=== PATIENT | male | born 1960 | race Caucasian/White ===

== ENCOUNTER → 2019-08-12 10:41 | Outpatient (CLI) | payer OTHER, SELFPAY ==
--- NOTE | 2019-08-12 10:43 | DI.CT.S_ITS ---
PROCEDURE: CT PEL WO CON INDICATIONS: right groin pain/testicle pain r/o hernia TECHNIQUE: Noncontrast 3 mm axial sections acquired through the bony pelvis, with coronal and sagittal reformatting. COMPARISON: None. FINDINGS: Image quality: Excellent. Bones: There is no acute fracture or dislocation. Mild osteoarthritic changes in bilateral hip joints, sacroiliac joints, and symphysis pubis are seen. No suspicious intraosseous lesion. No evidence of avascular necrosis of femoral head. Mild degenerative disc disease in visualized lower lumbar spine is also seen. Soft tissues: Appendix is enlarged in right lower quadrant abdomen with suggestion of a 5 mm appendicolith. Slightly enlarged appendix is seen with a diameter measures up to 9 mm. There is suggestion of appendiceal wall thickening and minimal periappendiceal fat stranding concerning for appendicitis. No abscess collection. No free fluid or free air. The urinary bladder is partially distended and show mild diffuse bladder wall thickening up to 5 mm in thickness. No discrete bladder wall mass is seen. Mildly enlarged prostate gland with mild mass effect of pleural urinary bladder is seen. There is left greater than right bilateral inguinal hernia containing fat only. No gross inguinal lymphadenopathy. IMPRESSION: 1. Finding is concerning for appendicitis with an appendicolith. No evidence of abscess collection or perforation. No bowel obstruction. No free fluid or free air. 2. Left greater than right bilateral inguinal hernia containing fat only. No inflammatory changes are noted bilaterally region. 3. Mild osteoarthritic changes throughout the pelvis. No suspicious bony lesion. No fracture or dislocation. No evidence of avascular necrosis of femoral head. Dictated by: Adi Beach M.D. on 08/12/2019 at 11:23 Approved by: Adi Beach M.D. on 08/12/2019 at 11:33
== END ==
PROVIDERS: Family Provider Internal Medicine; PCP Internal Medicine; Visit Provider Specialist
DX: R10.31 Right lower quadrant pain (principal); N50.811 Right testicular pain; K40.20 Bilateral inguinal hernia, without obstruction or gangrene, not specified as recurrent
CPT/HCPCS: 72192

== ENCOUNTER → 2019-08-13 12:19 | Outpatient (CLI) | payer OTHER, SELFPAY ==
[2019-08-13 12:41] LABS: Add Manual Diff / Slide Review NO; Basophils Absolute Auto 100 /uL (0-100); Basophils Percent Auto 1.2 % (0-2); Eosinophils Absolute Auto 100 /uL (0-450); Eosinophils Percent Auto 2.5 % (2-4); Hematocrit 48.8 % (41-53); Hemoglobin 16.7 g/dL (13.5-17.5); Lymphocytes Absolute Auto 2000 /uL (1100-4500); Lymphocytes Percent Auto 35.3 % (25-40); Mean Corpuscular HGB Conc 34.2 % (30-36); Mean Corpuscular Volume 87.9 fL (80-100); Monocytes Absolute Auto 500 /uL (0-900); Monocytes Percent Auto 9.2 % (3-14); Neutrophils Absolute Auto 3000 /uL (1500-7000); Neutrophils Percent Auto 51.8 % (50-75); Platelet Count 261 X10^3/uL (150-400); Red Blood Cell Count 5.55 X10^6/uL (4.5-5.9); Red Cell Distribution Width 14.3 % (11.6-14.8); White Blood Cell Count 5.8 X10^3/uL (4.5-11.0)
[2019-08-13 12:58] LABS: Alanine Aminotransferase 53 IU/L (<50); Albumin 4.9 g/dL (3.5-5.0); Albumin Globulin Ratio 1.6 (1.0-2.8); Alkaline Phosphatase 64 U/L (38-126); Aspartate Aminotransferase 45 IU/L (17-59); BUN Creatinine Ratio 15.7 (6-22); Bilirubin Total 0.8 mg/dL (0.2-1.3); Blood Urea Nitrogen 22 mg/dL (9-20); Calcium 10.7 mg/dL (8.4-10.2); Carbon Dioxide 30 mmol/L (22-32); Chloride 104 mmol/L (98-107); Estimated Glomerular Filt Rate 51.9 mL/min (>60); Globulin 3.1 g/dL (1.7-4.1); Glucose 99 mg/dL (70-100); HEMOLYSIS < 15 (0-50); Potassium 5.5 mmol/L (3.4-5.1); Sodium 143 mmol/L (137-145)
== END ==
PROVIDERS: Family Provider Internal Medicine; PCP Internal Medicine; Visit Provider Specialist
DX: R10.31 Right lower quadrant pain (principal)
CPT/HCPCS: 36415; 80053; 85025; J2543

== ENCOUNTER 2019-08-13 14:10 | Day surgery (SDC) | payer OTHER, SELFPAY ==
[2019-08-13] VITALS (8 sets, daily range): BP systolic 122–162; BP diastolic 69–92; PULSE 60–72; RESP 10–16; TEMP 36.2–36.9; O2SAT 94–98; BMI 32.7
--- NOTE | 2019-08-13 | PATH_ITS ---
[facility] Accession Number: [id number] . 01 Material submitted: . appendix - APPENDIX . 02 Diagnosis: Appendix, Appendectomy: Mild acute appendicitis with luminal fecalith. Prominent lymphoid component; please see comment. Negative for epithelial dysplasia or malignancy. [facility] 08/18/2019 1312 Local . 02 Comment: The entire appendix is submitted, and shows a prominent lymphoid component which may due to tangential sectioning or a brisk immune response; however, this case will be sent for review by our hematopathologist in consultation and the results reported as an addendum. . 02 Electronically signed: . Morena Mckeon MD, Pathologist NPI- [id number] . 01 Gross description: . Received in formalin, labeled appendix, is an intact appendix (length-4.5 cm, diameter-1.0 cm) with gasca-pink smooth and shiny serosa and attached mesoappendix (up to 1.5 cm in depth). The resection margin is received opened. The lumen contains red-brown solid firm material. The wall is up to 0.3 cm thick. No nodules, masses or lesions are identified. The resection margin is inked blue. The appendix is serially sectioned and entirely submitted proximal to distal in cassettes A1-A3 with the resection margin en face in A1 and the tip bivalved in A3. ([id number]) /[facility] 08/14/2019 1647 Local . 02 Pathologist provided ICD-10: K35.80 . 02 CPT . 064374 Performed at: 01 [facility] [address] [place] [address] [address] [facility], [place], [place] [id number] MD Joe Hall MD Phone: [phone] Performed at: 02 [facility] [address] [place] [id number] MD Morena Mckeon MD Phone: [phone]
--- NOTE | 2019-08-13 14:18 | PM.HP.1 ---
History of Present Illness History of Present Illness Date Patient Seen: 08/13/19 Time Patient Seen: 14:00 Chief complaint: *[id number] Narrative: The patient is a gentleman who had a CT scan for other reasons and was found to have findings suggestive of acute appendicitis. Developed right lower quadrant pain and is seen. He is tender in the right lower quadrant is being brought in for an appendectomy and indicated procedures Patient History Medical History Heartburn (Acute) HTN (hypertension) (Acute) Hyperlipemia (Acute) Surgical History History of surgery on wrist (Acute) Hx of elbow surgery (Acute) Hx of tonsillectomy (Acute) Family & Social History Family History Brother Heart disease Diabetes mellitus Mother Stroke Father Heart disease Grandfather Heart disease Social History: household members spouse Tobacco & Substance use: Smoking Status Never smoker alcohol intake never Meds Home Medications and Allergies Home Medications Medication Instructions Recorded Confirmed Type aspirin 81 mg tablet,delayed 81 mg PO DAILY 04/07/18 08/13/19 History release fenofibrate 50 mg capsule 50 mg PO DAILY 04/07/18 08/13/19 History metoprolol tartrate 50 mg tablet 50 mg PO DAILY 04/07/18 08/13/19 History rosuvastatin 20 mg tablet 20 mg PO DAILY 04/07/18 08/13/19 History cyclobenzaprine 10 mg tablet 10 mg PO BEDTIME PRN 08/05/19 08/13/19 History tmdjfsyf-pmu-nvxmx acid 0.4 1 tab PO DAILY 08/05/19 08/13/19 History mg-lycopene 300 mcg-lutein 250 mcg tablet nitroglycerin 0.4 mg sublingual 0.4 mg SL Q5M PRN 08/05/19 08/13/19 History tablet Allergies Allergy/AdvReac Type Severity Reaction Status Date / Time No Known Drug Allergies Allergy Verified 08/13/19 14:11 Review of Systems Review of Systems ROS Unobtainable: All systems reviewed & are unremarkable except as noted in HPI and below Musculoskeletal Comments: Hernia bilateral inguinal. Both reducible. Exam Narrative Exam Narrative: Lungs are clear to auscultation no rales or rhonchi heart regular rate and rhythm no murmur gallop abdomen is protuberant and distended soft there is localized tenderness the right lower abdomen. Some voluntary guarding. Remainder the abdomen is soft and nontender. Assessment & Plan Assessment & Plan narrative: Patient has a normal white blood cell count and normal temp but findings on CT and physical exam suggestive of appendicitis. Will proceed with an appendectomy. Will attempt to do this laparoscopically. I've discussed the operation including risks of bleeding infection injury to internal organs and hernia will proceed
[2019-08-13] MEDS: LACTATED RINGERS 1,000 ML 100 ML IV (14:26)
--- NOTE | 2019-08-13 14:30 | PM.PREOP ---
Pre-operative Note Interval Note History & Physical reviewed/Exam performed by Physician: Yes Changes to H&P: No
[2019-08-13] MEDS: PIPERACILLIN-TAZO 3.375 GM/50 ML FROZ.PIGGY IV (14:31)
--- NOTE | 2019-08-13 15:08 | SUR.OPER ---
Supine on padded OR bed, head on pillow, arm padded and tucked at side, legs uncrossed, safety belt at thigh, tape over blanket over lower legs .
[2019-08-13] MEDS: BUPIVACAINE 0.5% (PF) VIAL 30 ML INJ (15:27)
--- NOTE | 2019-08-13 16:04 | PM.OP.1 ---
Operative Date/Time/Diagnoses Date of procedure: 08/13/19 Time of procedure: 16:05 Pre-op diagnosis: right lower quadrant pain rule out acute appendicitis Post-op diagnosis: same (Acute appendicitis) Procedure & Clinicians Procedure: Laparoscopic appendectomy Same procedure as scheduled: Yes Indications: Acute onset right lower quadrant pain abnormal CT and tenderness in the right lower quadrant Surgeon: Chino Diaz Click Yes if Unassisted: Yes Anesthesia Type: General Operative Notes Findings: Acute appendicitis with the tip becoming adhesed to the right abdominal wall Closure Type: primary Specimen(s): other (Appendix) Prosthetic devices, grafts, tissues, transplants, or devices: None Estimated Blood Loss (mL): 5 Blood products transfused: none Procedure in detail: Patient was placed supine on the operating room table and underwent general endotracheal anesthesia. He was prepped and draped in the usual fashion. Local anesthetic was infiltrated beneath the umbilicus and a curvilinear incision made there. Was carried down level the fascia. The fascia was entered under direct vision as was the peritoneal cavity. Stay sutures of 0 Vicryl werPlaced in the fascia. A 12 mm port was inserted and the abdomen was insufflated. Two additional ports were placed 1 between the umbilicus and pubis and 1 left lower quadrant. The appendix was identified as a fairly normal structure except the tip which was quite thick and inflamed appearing in beginning to form adhesions to the right lateral abdominal wall. Using blunt dissection I was able to dissected free of the abdominal wall. The mesoappendix was divided using cautery. A loop was placed at the base and it seemed to encompass where the artery would be as well. This was an 0 PDS loop. It was cinched down. The appendix was grasped with a clamp across its lumen and divided using cautery and Metzenbaum laparoscopic scissors. Was immediately placed in a bag without spillage. Was removed that difficulty through the umbilical port. the right lower quadrant pelvis were irrigated and suctioned free of fluid. There was no significant bleeding during the procedure. A completion everything looked as it should. The ports were all removed. The stay sutures at the umbilicus were tied and additional 2 0 PDS was placed between the 2 stay sutures. The wounds were irrigated and 4 0 Vicryl subcuticular stitches were used to close the skin along with Steri-Strips. Band-aids were applied and the patient was awakened and extubated taken recovery area in good condition. The Flores which had been placed immediately prior to the operation was removed prior to the patient waking up. Complications: none Post-operative Condition: stable Disposition: PACU Plan for aftercare: Follow-up in the office
== END 2019-08-13 17:25 | disposition home or self-care (01) ==
LOC: OR 14:13 → AC 14:14
PROVIDERS: Family Provider Internal Medicine; PCP Internal Medicine; Visit Provider Specialist
PROC: 0DTJ4ZZ Resection of Appendix, Percutaneous Endoscopic Approach (ICD-10-PCS; CPT 44970; principal; 2019-08-13 13:45)
DX: K35.890 Other acute appendicitis without perforation or gangrene (principal); I10 Essential (primary) hypertension; E78.5 Hyperlipidemia, unspecified; R12 Heartburn; R10.31 Right lower quadrant pain
CPT/HCPCS: 44970; 36415; 80053; 85025; J2543

== ENCOUNTER → 2019-09-11 11:39 | Outpatient (CLI) | payer OTHER, SELFPAY ==
[2019-09-11 12:45] LABS: Alanine Aminotransferase 53 IU/L (<50); Albumin 4.7 g/dL (3.5-5.0); Albumin Globulin Ratio 1.7 (1.0-2.8); Alkaline Phosphatase 56 U/L (38-126); Aspartate Aminotransferase 44 IU/L (17-59); BUN Creatinine Ratio 16.7 (6-22); Bilirubin Total 0.7 mg/dL (0.2-1.3); Blood Urea Nitrogen 20 mg/dL (9-20); Calcium 9.8 mg/dL (8.4-10.2); Carbon Dioxide 26 mmol/L (22-32); Chloride 106 mmol/L (98-107); Cholesterol 168 mg/dL (140-199); Estimated Glomerular Filt Rate > 60.0 mL/min (>60); Globulin 2.8 g/dL (1.7-4.1); Glucose 80 mg/dL (70-100); HDL Cholesterol 44 mg/dL (40-60); HEMOLYSIS 26 (0-50); LDL Cholesterol Calculated 86 mg/dL (<100); Potassium 4.9 mmol/L (3.4-5.1); Sodium 140 mmol/L (137-145); Total Protein 7.5 g/dL (6.3-8.2); Triglycerides 192 mg/dL (35-150)
[2019-09-11 13:15] LABS: Prostate Specific Antigen Scrn 1.04 ng/mL (0.1-4.0)
[2019-09-15 14:29] LABS: Parathyroid Hormone Int 17 pg/mL (14-64)
== END ==
PROVIDERS: Family Provider Internal Medicine; PCP Internal Medicine; Visit Provider Internal Medicine
DX: Z12.5 Encounter for screening for malignant neoplasm of prostate (principal); E78.5 Hyperlipidemia, unspecified; E83.52 Hypercalcemia; I10 Essential (primary) hypertension; R74.0 Nonspecific elevation of levels of transaminase and lactic acid dehydrogenase [LDH]
CPT/HCPCS: 36415; 80053; 80061; 83970; G0103

== ENCOUNTER → 2020-05-17 10:15 | Outpatient (CLI) | payer OTHER, SELFPAY ==
[2020-05-17 11:25] LABS: Alanine Aminotransferase 64 IU/L (<50); Albumin 4.5 g/dL (3.5-5.0); Albumin Globulin Ratio 1.7 (1.0-2.8); Alkaline Phosphatase 86 U/L (38-126); Aspartate Aminotransferase 41 IU/L (17-59); BUN Creatinine Ratio 16.7 (6-22); Bilirubin Total 0.9 mg/dL (0.2-1.3); Blood Urea Nitrogen 17 mg/dL (9-20); Calcium 9.6 mg/dL (8.4-10.2); Carbon Dioxide 26 mmol/L (22-32); Chloride 104 mmol/L (98-107); Cholesterol 174 mg/dL (140-199); Estimated Glomerular Filt Rate > 60.0 mL/min (>60); Globulin 2.7 g/dL (1.7-4.1); Glucose 96 mg/dL (80-110); HDL Cholesterol 39 mg/dL (40-60); HEMOLYSIS < 15 (0-50); LDL Cholesterol Calculated 64 mg/dL (<100); Potassium 4.8 mmol/L (3.4-5.1); Sodium 140 mmol/L (137-145); Total Protein 7.2 g/dL (6.3-8.2); Triglycerides 356 mg/dL (35-150)
== END ==
PROVIDERS: Family Provider Internal Medicine; PCP Internal Medicine; Referring Provider Internal Medicine; Visit Provider Internal Medicine
DX: I10 Essential (primary) hypertension (principal); E78.5 Hyperlipidemia, unspecified
CPT/HCPCS: 36415; 80053; 80061

== ENCOUNTER → 2020-05-23 09:09 | Outpatient (CLI) | payer OTHER, SELFPAY ==
[2020-05-24 07:36] LABS: COVID19 Sendout Not Detected (Not Detect)
== END ==
PROVIDERS: Family Provider Internal Medicine; PCP Internal Medicine; Visit Provider Physician Assistant
DX: Z11.59 Encounter for screening for other viral diseases (principal)
CPT/HCPCS: 87635

== ENCOUNTER 2020-05-26 06:40 | Day surgery (SDC) | payer OTHER, SELFPAY ==
[2020-05-26] VITALS (8 sets, daily range): BP systolic 125–169; BP diastolic 76–93; PULSE 46–60; RESP 9–16; TEMP 36.2–36.8; O2SAT 92–96; BMI 32.8
--- NOTE | 2020-05-26 | PATH_ITS ---
[facility] Accession Number: [id number] . 01 Material submitted: . PART A: colon - ASCENDING COLON POLYP PART B: colon - 40CM COLON POLYP . 01 Clinical history: . SDC . 02 Diagnosis: A. Ascending Colon, Polyp, Biopsy: Tubular adenoma. . B. Colon, Polyp 40 cm, Biopsy: Tubular adenoma. Additional levels were examined. [facility] 06/03/2020 1517 Local . 02 Electronically signed: . Morena Mckeon MD, Pathologist NPI- [id number] . 01 Gross description: . A. Received in formalin, labeled ascending colon polyp, and consists of a 0.2 x 0.2 x 0.2 cm gasca fragment of soft tissue, which is entirely submitted in cassette A1. B. Received in formalin, labeled 40 cm colon polyp, and consists of a 0.4 x 0.4 x 0.3 cm gasca-pink fragment of soft tissue, which is entirely submitted in cassette B1. ([id number]) /[facility] 05/27/2020 1217 Local . 02 Pathologist provided ICD-10: D12.2, D12.6 . 02 CPT . 167694, 370219 Performed at: 01 [facility] [address], [place], [place] [id number] MD Joe Hall MD Phone: [phone] Performed at: 02 [facility] [address] [place], [place] [id number] MD Morena Mckeon MD Phone: [phone]
--- NOTE | 2020-05-26 07:45 | PM.HP.1 ---
History of Present Illness History of Present Illness Date Patient Seen: 05/26/20 Time Patient Seen: 07:45 Chief complaint: SDC Narrative: The patient is a gentleman who was last sigmoidoscopy was over 15 years ago. He said he had a few polyps removed at that time. Never had a colonoscopy. He has been having intermittent rectal bleeding sometimes of a large amount. It is always with a bowel movement. Patient History Medical History Heartburn (Acute) HTN (hypertension) (Acute) Hyperlipemia (Chronic) Treadmill stress test negative for angina pectoris (Acute 06/28/16) Surgical History History of surgery on wrist (Acute) Hx of elbow surgery (Acute) Hx of tonsillectomy (Acute) S/P laparoscopic appendectomy (Acute ~08/13/19) Family & Social History Family History Brother Heart disease Diabetes mellitus Mother Stroke Father Heart disease Grandfather Heart disease Social History: household members spouse Tobacco & Substance use: Smoking Status Never smoker alcohol intake never Substance Use Type does not use Meds Home Medications and Allergies Home Medications Medication Instructions Recorded Confirmed Type aspirin 81 mg tablet,delayed 81 mg PO DAILY 04/07/18 05/26/20 History release cyclobenzaprine 10 mg tablet 10 mg PO BEDTIME PRN 08/05/19 05/26/20 History igppqfws-hbd-bjhof acid 0.4 1 tab PO DAILY 08/05/19 05/26/20 History mg-lycopene 300 mcg-lutein 250 mcg tablet nitroglycerin 0.4 mg sublingual 0.4 mg SL Q5M PRN 08/05/19 05/26/20 History tablet sildenafil (pulm.hypertension) 20 100 mg PO DAILY PRN tab 09/11/19 05/26/20 History mg tablet metoprolol succinate 50 mg 50 mg PO DAILY #90 tab 09/22/19 05/26/20 Rx tablet,extended release 24 hr rosuvastatin 40 mg tablet 40 mg PO DAILY #90 tab 09/22/19 05/26/20 Rx Allergies Allergy/AdvReac Type Severity Reaction Status Date / Time atorvastatin AdvReac Intermediate aches/pains Verified 05/19/20 15:03 Review of Systems Review of Systems ROS: Yes All systems reviewed with the patient and are negative except as otherwise documented Exam Vital Signs (past 8 hours): - 05/26/20 07:16 Temperature 97.3 F L Pulse Rate 58 L Respiratory Rate 16 Blood Pressure 169/93 H Pulse Oximetry 96 Oxygen Delivery Method Room Air Narrative Exam Narrative: Pleasant cooperative patient no apparent distress. Lungs are clear to auscultation. No rales or rhonchi. Heart regular rate and rhythm no murmur gallop. Abdomen is soft nontender without mass. No obvious hernias. Patient is alert and oriented x3. Assessment & Plan Assessment & Plan narrative: The patient for a screening colonoscopy. I have discussed the procedure with them. Risks of bleeding, perforation which would necessitate major operation, failure to find remove all lesions, the potential tattoo were all discussed. All questions were answered. They wished to proceed. Also discussed hemorrhoid banding with him.
--- NOTE | 2020-05-26 07:47 | PM.PREOP ---
Pre-operative Note COVID-19 COVID-19 status: Negative Result date/Date tested (Pos, Neg/Pending): 05/23/20 Interval Note History & Physical reviewed/Exam performed by Physician: Yes Changes to H&P: No ASA Class (for procedural sedation): II
[2020-05-26] MEDS: MIDAZOLAM 5 MG/5 ML VIAL IV (07:55)
[2020-05-26] MEDS: fentaNYL 250 MCG/5 ML INJ IV (07:58)
--- NOTE | 2020-05-26 08:28 | PM.OP.ENDO ---
Operative Date/Time/Diagnoses Date of procedure: 05/26/20 Time of procedure: 08:28 Pre-op diagnosis: Rectal bleeding. Last sigmoidoscopy 15 years ago. This is his 1st colonoscopy. Post-op diagnosis: same (Diverticulosis sigmoid colon. Anterior midline fissure chronic. Internal hemorrhoids.) Procedure & Clinicians Study performed: Colonoscopy with cold biopsy and anoscopy with hemorrhoidal banding of 3 columns. Same procedure as scheduled: Yes Indications: Screening Surgeon: Chnio Diaz Procedure Notes SCOAP/Timeout: Performed Procedure in detail: The patient was placed in the left lateral decubitus position and underwent IV sedation directed by the surgeon consisting of fentanyl and Versed. Digital exam was remarkable for narrowing of the anus. There was a small anterior midline sentinel pile. The scope was inserted and advanced through the rectum into the sigmoid, descending, transverse, and ascending colon. Diverticulosis was noted in the sigmoid colon. The cecum was reached identified by the ileocecal valve and the appendiceal opening. The ileocecal valve was successfully cannulated. The terminal ileum was normal in appearance. The scope was gradually brought out. Polyps were found at the ascending colon and at 40 cm from the anal verge. These were both tiny lesions.. The scope ultimately was retroflexed in the rectum. The appearance was remarkable for internal hemorrhoids.. The scope was removed slowly and the patient was noted to have ulcerations on hemorrhoids near the anal verge. And the patient tolerated the procedure well. The prep was good. An anoscope was inserted and circumferential exam performed. I could see a chronic fissure in the anterior midline. Just beyond it was a sentinel pile. There were 3 columns of hemorrhoids that I chose to band these were located in the left lateral right anterior and right posterior locations. Scope withdrawal time: Nine minutes(11 total) Sedation minutes: 32 Findings: diverticulosis (Sigmoid colon), internal hemorrhoids (Three columns banded) and polyp (Small) Specimen(s): other (Polyps) Complications: none Post-procedure Recommendations: Start medication(s) (nifedipine cream) Follow up: weeks (2-3) Disposition: PACU
--- NOTE | 2020-05-26 08:46 | SUR.PHASEI ---
O2 weaning off, Dr. iDaz spoke with pt about procedure results
--- NOTE | 2020-05-26 09:07 | SUR.PHASEII ---
Pt rdcvd from gurvinder Arciniega with full report. VSS, pt denies pain or nausea and sitting up in bed drinking orange juice with no c/o.
--- NOTE | 2020-05-26 09:28 | SUR.PHASEII ---
Pt up and ambulating gait steady, getting dressed now.
--- NOTE | 2020-05-26 11:25 | SUR.PHASEII ---
1120-Pt dcd in stable condition via wc with no c/o. pt had been sleeping in bed dressed waiting for Dr Pickett to be finished dwith her surgery
== END 2020-05-26 11:20 | disposition home or self-care (01) ==
PROVIDERS: PCP Internal Medicine; Referring Provider Specialist; Visit Provider Specialist
PROC: 0DJD8ZZ Inspection of Lower Intestinal Tract, Via Natural or Artificial Opening Endoscopic (ICD-10-PCS; CPT 45378; principal; 2020-05-26 07:45)
DX: K60.1 Chronic anal fissure (principal); I10 Essential (primary) hypertension; R12 Heartburn; E78.5 Hyperlipidemia, unspecified; K57.30 Diverticulosis of large intestine without perforation or abscess without bleeding; K64.8 Other hemorrhoids; D12.2 Benign neoplasm of ascending colon; D12.6 Benign neoplasm of colon, unspecified
CPT/HCPCS: 45380; 46221; 99152; 99153; J2250; J3010

== ENCOUNTER → 2020-08-22 09:20 | Outpatient (CLI) | payer OTHER, SELFPAY ==
[2020-08-22 11:35] LABS: COVID19 -Nasal RAPID Negative (Negative)
== END ==
PROVIDERS: PCP Internal Medicine; Visit Provider Specialist
DX: Z01.812 Encounter for preprocedural laboratory examination (principal); Z20.828 Contact with and (suspected) exposure to other viral communicable diseases
CPT/HCPCS: 87635; C9803

== ENCOUNTER 2020-08-23 06:39 | Day surgery (SDC) | payer OTHER, SELFPAY ==
[2020-08-17 14:45] VITALS: BMI 33.2
[2020-08-23] VITALS (8 sets, daily range): BP systolic 112–148; BP diastolic 66–81; PULSE 56–62; RESP 8–15; TEMP 35.6–36.6; O2SAT 93–97; BMI 33.2
[2020-08-23] MEDS: LACTATED RINGERS 1,000 ML 42 ML IV (07:42)
--- NOTE | 2020-08-23 07:54 | PM.PREOP ---
Pre-operative Note COVID-19 COVID-19 status: Negative Result date/Date tested (Pos, Neg/Pending): 08/22/20 Interval Note History & Physical reviewed/Exam performed by Physician: Yes Changes to H&P: No
[2020-08-23] MEDS: CEFAZOLIN 2 GM/100 ML FROZ.PIGGY IV (07:56)
--- NOTE | 2020-08-23 08:12 | SUR.OPER ---
Supine on padded OR bed, head on pillow, arms secured on padded arm boards at <90 degrees abduction, legs uncrossed, safety belt at thigh, tape over blanket over lower legs.
[2020-08-23] MEDS: BUPIVACAINE 0.5% (PF) VIAL 30 ML INJ (08:17)
--- NOTE | 2020-08-23 10:32 | SUR.PHASEI ---
O2 reduced to 1LNP, arouses easily to voice, no longer needing jaw support. Denies pain/nausea
--- NOTE | 2020-08-23 11:05 | PM.OP.1 ---
Operative Date/Time/Diagnoses Date of procedure: 08/23/20 Time of procedure: 10:05 Pre-op diagnosis: Bilateral inguinal hernias. Post-op diagnosis: same (Indirect hernia on the right. Direct hernia on the left.) Procedure & Clinicians Procedure: Bilateral inguinal hernia repair with plug and patch technique Same procedure as scheduled: Yes Indications: Symptomatic right inguinal hernia and large left inguinal hernia. Patient brought in for repair. Surgeon: Chino Diaz Click Yes if Unassisted: Yes Anesthesia Type: General Operative Notes Findings: Right sided indirect hernia. Left-sided direct hernia with a large amount of preperitoneal fat protruding through the floor. Closure Type: primary Specimen(s): none sent Prosthetic devices, grafts, tissues, transplants, or devices: Mesh. Small plug on the right and medium plug on the left. Estimated Blood Loss (mL): 20 Blood products transfused: none Procedure in detail: The patient was placed supine on the operating room table and underwent general LMA anesthesia. He was prepped and draped in the usual fashion. A transverse incision was made overlying the right internal ring and carried down to the level of the external oblique. The external oblique was opened parallel with its fibers through the external ring. The cord structures were elevated. The cremaster was opened proximally and search made for an indirect sac. Very small narrow sac was identified and from surrounding structures. It was suture ligated at the level the deep epigastric vessels and the distal portion removed. The stump was allowed to retract and a small plug was placed in the defect created by the hernia. It was tacked into place with interrupted 0 Ethibond suture.. The floor was examined and was found to be mildly weakened.. A patch was placed across the floor and tacked at the pubic tubercle, the posterior lamella of the anterior rectus sheath, the ilioinguinal ligament, and superior lateral to the cord. The opening was modified as necessary to prevent tight constriction of the cord. Sutures of 0 as above were used to secure the mesh. The external oblique was closed with a running 3 0 Vicryl. The subcu was closed with interrupted 3 0 Polysorb. The skin was closed with a running 4 0 Vicryl subcuticular stitch. Attention was then turned to the left side. A mirror though slightly larger incision was made on the left overlying the internal ring. It was carried down level the external oblique which was opened parallel with its fibers through the external ring. Cord structures were elevated. There was a large amount of fat protruding through the floor immediately adjacent to the cord structures. Cremaster was opened and this fat delivered into the wound. A careful search was made for a indirect hernia sac but none was found. This fat was slowly dissected through to make sure there was no hernia in it as well. However no sac was found. The fat was ligated at the level the deep epigastric vessels in the stumps allowed to retract. A medium plug was placed in the defect created by this fat and tacked into place with interrupted Ethibond sutures. Patch was placed across the floor intact in identical fashion to the opposite side. External oblique was closed a running 3 0 Vicryl. The subQ was closed with interrupted 3 0 Vicryl the skin was closed running 4-0 Vicryl subcuticular stitch and Steri-Strips. Steri-Strips were also applied to the opposite side along with dressings. Local anesthetic was infiltrated at the beginning of each procedure and at the end. Patient tolerated the procedures well. Complications: none Post-operative Condition: stable Disposition: PACU
== END 2020-08-23 12:15 | disposition home or self-care (01) ==
PROVIDERS: PCP Internal Medicine; Referring Provider Internal Medicine; Visit Provider Specialist
PROC: (CPT 49505; principal; 2020-08-23 07:45)
DX: K40.20 Bilateral inguinal hernia, without obstruction or gangrene, not specified as recurrent (principal); R12 Heartburn; I10 Essential (primary) hypertension; E78.5 Hyperlipidemia, unspecified
CPT/HCPCS: 49505; C1781; J0690; J1100; J2250; J2405; J2704; J3010

== ENCOUNTER → 2020-09-27 09:45 | Outpatient (CLI) | payer OTHER, SELFPAY ==
[2020-09-27] MEDS: COVID-19 VACC #1, MRNA(MOD) 100 MCG/0.5 ML VIAL IM (09:51)
== END ==
PROVIDERS: PCP Internal Medicine; Visit Provider Internal Medicine
DX: Z23 Encounter for immunization (principal)
CPT/HCPCS: 0011A; 91301

== ENCOUNTER → 2020-10-20 08:45 | Outpatient (CLI) | payer OTHER, SELFPAY ==
[2020-10-20] MEDS: COVID-19 VACC #2, MRNA(MOD) 100 MCG/0.5 ML VIAL IM (08:49)
== END ==
PROVIDERS: PCP Internal Medicine; Visit Provider Internal Medicine
DX: Z23 Encounter for immunization (principal)
CPT/HCPCS: 0012A; 91301

== ENCOUNTER → 2021-02-15 10:01 | Outpatient (CLI) | payer OTHER, SELFPAY ==
--- NOTE | 2021-02-16 14:22 | PM.TREADMILL ---
Cardiac Stress Test Report Referral & Results Date Patient Seen: 02/16/21 Requesting provider: Esdras Ojeda Indication: Chest pain Rest ECG: unremarkable although frequent PVCs Procedure Note: Today following both written and verbal informed consent the patient was exercised according to a standard Jordin protocol patient went for a total of 7 minutes 38 seconds achieving a maximum heart rate of 146 maximum systolic blood pressure of 196. This is approximately 10.1 METS. Exercise was terminated at this point because of targets were met. Patient was also given Cardiolite through a previously started Hep-Lock IV by the diagnostic imaging staff approximately 1 minute prior to the cessation of exercise. there are no ST-T segment changes Function aerobic impairment rates about 10% on the active scale There frequent PVCs and PACs including runs of ventricular bigeminy and 3 and 4 beat runs of nonsustained polymorphic ventricular tachycardia as well as 5-6 beat runs of supraventricular tachycardia Impression: no evidence of ischemia Frequent dysrhythmias as above Average exercise capacity Please see perfusion imaging report as well Please note: Actual ECG tracings can be found in the PACS system.
--- NOTE | 2021-02-16 19:47 | DI.NM.S_ITS ---
DATE OF SERVICE: 02/15/2021 PROCEDURE: Exercise perfusion. INDICATION: Chest pain with underlying hypertension and hyperlipidemia. RADIOPHARMACEUTICAL: 24.8 millicurie technetium-99m Myoview IV was injected at stress and 26.8 millicurie technetium-99m Myoview IV was injected at rest. CARDIAC STRESS: The patient underwent exercise perfusion study under the supervision of an attending staff. The patient walked on Jordin protocol for 7 minutes and 38 seconds, achieved 92 percent of target heart rate. Baseline blood pressure 140/78 mmHg. Peak blood pressure 196/106 mmHg, suggestive of hypertensive blood pressure response. The patient achieved 10.1 METs of workload. Functional aerobic impairment positive 10 percent. No chest discomfort. Baseline EKG revealed sinus rhythm with intermittent PVCs. During early part of exercise, PVCs worsened with frequent PVCs, as well as ventricular triplets and one four-beat run of nonsustained ventricular tachycardia, as well as a short burst of SVT and some PACs. At peak exercise, no worsening of supraventricular or ventricular arrhythmias. In recovery, PVCs returned. There was some nonspecific ST-T changes without any convincing ischemic changes. RAW DATA: There is increased subdiaphragmatic activity. Patient's weight is 250 pounds. GATED STUDY: Resting LV ejection fraction 65 percent and stress LV ejection fraction 67 percent. No obvious wall motion abnormalities. Resting end- diastolic volume 136 mL. TID ratio 0.98, which is within normal limits. Lung/heart ratio 0.33, which is within normal limits. MYOCARDIAL PERFUSION SCAN: The stress supine and resting supine images revealed moderate-size, severely decreased perfusion of basal inferior wall, as well as inferoapex, which got significantly improved during stress prone images, suggestive of diaphragmatic tissue attenuation artifact. No convincing ischemia or infarction pattern seen. CONCLUSION: I will call this study likely a normal myocardial perfusion study with evidence of diaphragmatic tissue attenuation artifact, which got significantly improved during stress prone images. The stress prone images did not reveal any convincing ischemia or infarction pattern. The patient walked on Jordin protocol for 7 minutes and 38 seconds. Hypertensive blood pressure response. No anginal symptoms. Frequent premature ventricular contractions and premature atrial contractions, as well as some nonsustained ventricular tachycardia. No sustained ventricular tachycardia or atrial fibrillation seen. Clinical correlation is recommended. Og Randle - SUPRIYA/myke/dannielle doc#: [id number]/job#: [id number] dd: 02/16/2021 17:20:00 dt: 02/16/2021 18:36:00 DICTATING MD/COPIES TO: Francis Hyde MD COPIES MNE: AKIL;
== END ==
PROVIDERS: PCP Internal Medicine; Referring Provider Internal Medicine; Visit Provider Internal Medicine
DX: Z20.822 Contact with and (suspected) exposure to COVID-19 (principal); Z01.812 Encounter for preprocedural laboratory examination; R07.9 Chest pain, unspecified; M54.2 Cervicalgia; I49.1 Atrial premature depolarization; I49.3 Ventricular premature depolarization; I10 Essential (primary) hypertension; E78.5 Hyperlipidemia, unspecified
CPT/HCPCS: 78452; 87635; 93016; 93017; 93018; A9502

== ENCOUNTER → 2021-02-15 11:22 | Outpatient (CLI) | payer OTHER, SELFPAY ==
[2021-02-15 12:52] LABS: COVID19 -Nasal RAPID Negative (Negative)
== END ==
PROVIDERS: PCP Internal Medicine; Visit Provider Physician Assistant
DX: Z01.812 Encounter for preprocedural laboratory examination (principal); Z20.822 Contact with and (suspected) exposure to COVID-19
CPT/HCPCS: 87635

== ENCOUNTER → 2021-03-16 14:30 | Outpatient (CLI) | payer OTHER, SELFPAY ==
--- NOTE | 2021-04-10 08:36 | PM.CARDMON.1 ---
Ssds Mk 2 Advanced Operator Report Referral & Results Date Patient Seen: 03/16/21 Requesting provider: Esdras Ojeda Indication: PVCs Duration of monitoring (days): 7 Diary information: There was 1 patient triggered event that was associated with sinus rhythm and PACs and PVCs Data: Minimum heart rate identified was 39 beats per minute at 07:27 on 03/18/2021 Maximum sinus heart rate was 114 beats per minute at 18:28 on 03/20/2021 Maximum overall heart rate was 179 beats per minute at 16:26 on 03/22/2021 during a 5 beat run of SVT Less than 1% of identified beats were supraventricular ectopic in origin which would classify them as rare Approximately 5.3% of identified beats were ventricular ectopic in origin which would classify them as frequent. This includes a 1 minute 41 sec run of ventricular bigeminy and a 35.8 sec run of ventricular trigeminy There was 1 run of ventricular tachycardia that was 10 beats in duration at a rate of 141 beats per minute There were 3 runs of SVT the fastest being the 5 beat run noted above the longest lasting 6 beats Impression: Patient with frequent PVCs and a single run of nonsustained brief run trigger tachycardia. Patient also with very rare very brief runs of SVT Clinical correlation suggested, evaluation for structural heart disease suggested.
== END ==
PROVIDERS: PCP Internal Medicine; Referring Provider Internal Medicine; Visit Provider Internal Medicine
DX: I49.3 Ventricular premature depolarization (principal)
CPT/HCPCS: 93242; 93244

== ENCOUNTER → 2021-12-07 12:25 | Outpatient (CLI) | payer OTHER, SELFPAY ==
--- NOTE | 2021-12-07 12:26 | DI.ECHO.S_ITS ---
[place] [facility] +---------+ : : [address] : : : : [id number] : : : : Phone: [phone]+ Echocardiogram Report + + :Name: MARIANNA ALCARAZ Study Date: 12/07/2021 Height: 72 in : :[facility] ReadingLocation: Weight: 250 lb : : Gender: Male BSA: 2.3 m2 : :: 1960 Age: 60 yrs BP: 165/89 mmHg: :Reason For Study: PVC's : :Ordering Physician: Dr. Dewitt : :Rusty Performed By: Carlos Eduardo Grove : :Referring: BRINA DUENAS R : + + Interpretation Summary Normal sinus rhythm. Normal LV size and wall thickness; normal wall motion and LV systolic function. EF is 55-60%. Normal chamber sizes. No significant valvular abnormalities. No prior study available for comparison. Procedure: A two-dimensional transthoracic echocardiogram with color flow and Doppler was performed. The study quality was technically adequate. There is no prior echocardiogram noted for this patient. Left Ventricle: The left ventricle is normal in size and wall thickness. Left ventricular systolic function is normal. The ejection fraction is estimated to be 55-60%. There are no focal wall motion abnormalities. Diastolic parameters suggest a relaxation abnormality of the left ventricle, consistent with probable normal filling pressures. Right Ventricle: The right ventricle is normal in size and function. Atria: Both atria are normal in size. The interatrial septum grossly appears intact with no obvious evidence for an atrial septal defect. Mitral Valve: The mitral valve is normal in structure and function. There is trace mitral regurgitation. Aortic Valve: The aortic valve is normal in structure and function. No aortic regurgitation is present. Tricuspid Valve: The tricuspid valve is normal in structure and function. There is trace tricuspid regurgitation. Pulmonary artery pressures cannot be estimated because of the lack of a measurable TR jet velocity. Pulmonic Valve: The pulmonic valve is normal in structure and function. There is no pulmonic valvular regurgitation. Great Vessels: The aortic root is normal size. The dimensions of the ascending aorta are normal. The IVC is of normal diameter and collapses greater than 50% with a sniff. This suggests a low right atrial pressure of 3 mm Hg. Pericardium/ Pleura There is a trivial pericardial effusion noted. There is no pleural effusion. MMode/2D Measurements & Calculations LVIDd: 5.5 cm LVOT diam: 2.1 cm LVIDs: 3.8 cm Ao root diam: 3.3 cm FS: 30.9 % asc Aorta Diam: 3.2 cm IVSd: 1.1 cm LVPWd: 1.1 cm LV cardoza. diameter/BSA (cm/m^2): 2.3 LV sys. diameter/BSA (cm/m^2): 1.6 LA dimension: 4.0 cm RA long axis: 5.1 cm LA A2 area: 16.6 cm2 LA A4 area: 17.2 cm2 LA length (vol): 5.0 cm LA vol: 48.4 ml LA vol index: 20.7 ml/m2 TAPSE_phl: 2.8 cm Doppler Measurements & Calculations Ao V2 max: 121.0 cm/sec LVOT Max Ignacio: 89.4 cm/sec Ao V2 mean: 80.9 cm/sec LV V1 max P.2 mmHg Ao max P.0 mmHg LV V1 VTI: 19.9 cm Ao mean P.0 mmHg GABRIELA(I,D): 3.0 cm2 Ao V2 VTI: 22.8 cm GABRIELA(V,D): 2.6 cm2 sev ratio: 0.87 GABRIELA indexed to BSA (cm^2/m^2): 1.3 MV E max ignacio: 76.3 cm/sec SV(LVOT): 68.9 ml MV A max ignacio: 73.7 cm/sec MV E/A: 1.0 Med Peak E' Ignacio: 5.4 cm/sec E/E' med: 14.1 Lat Peak E' Ignacio: 7.5 cm/sec E/E' lat: 10.2 E/e' average: 12.2 MV dec time: 0.20 sec AV VR_phl: 0.74 MV P1/2t-pr_phl: 60.0 msec GABRIELA(VTI)/BSA_phl: 1.3 Electronically signed by: Marta Cho M.D. on Reading Physician:12/08/2021 12:54 AM
== END ==
PROVIDERS: PCP Internal Medicine; Referring Provider Internal Medicine; Visit Provider Internal Medicine
DX: I49.3 Ventricular premature depolarization (principal)
CPT/HCPCS: 93306

== ENCOUNTER → 2022-08-15 11:42 | Outpatient (CLI) | payer OTHER, SELFPAY ==
--- NOTE | 2022-08-15 11:43 | DI.CT.S_ITS ---
PROCEDURE: CT KIDNEY URETER BLADDER (KUB) INDICATIONS: Kidney stone TECHNIQUE: Axial sections were acquired from the lung bases to the pubic symphysis. Coronal and sagittal reformats were performed. For radiation dose reduction, the following was used: automated exposure control, adjustment of mA and/or kV according to patient size. COMPARISON: CT, CT PEL WO CON, 08/12/2019, 10:43. FINDINGS: Image quality: Excellent. Lung bases: Unremarkable. Heart: No significant findings. URINARY: Right Kidney: There is a 1 mm nonobstructive stone in the inferior pole. No hydronephrosis Right Ureter: No ureteral stones or hydroureter. Left Kidney: 4 stones are seen in the inferior pole of the kidney measuring 1-4 mm. The largest stone demonstrates CT density 575 HU. There is trace left renal pelviectasis and mild perinephric stranding. Left Ureter: No ureteral stones or hydroureter. Bladder: Normal wall thickness. No stones. ABDOMEN: Liver: Unremarkable. Gallbladder: Unremarkable. Biliary ducts: Unremarkable. Pancreas: Unremarkable. Spleen: Unremarkable. Adrenal Glands: Unremarkable. Stomach and Bowel: Stomach, small bowel loops, and colon are normal in caliber. Mild diverticulosis without diverticulitis. Peritoneum: No abnormal intraperitoneal fluid. No free air. Ventral Wall: No hernia. Abdominal Nodes: No enlarged retroperitoneal or mesenteric lymph nodes. Vessels: Aorta and inferior vena cava are normal in size. Mild atherosclerotic calcifications. PELVIS: Pelvic Organs: Unremarkable. Pelvic Nodes: Unremarkable. Miscellaneous: Small fat containing right inguinal hernia is noted. There are hydroceles are noted in scrotum. Bones: Unremarkable. Rsjc-pb-zxcppvmb degenerative changes are noted in the lower thoracic spine lumbar spine. IMPRESSION: 1. Trace left renal pelviectasis and mild perinephric stranding. There are 4 small 1-4 mm nonobstructive left renal stones in the inferior pole. No obstructive stones are identified. The patient may have recently passed stone(s). 2. A 1 mm nonobstructive stone in the inferior pole of the right kidney. 3. Mild bladder wall thickening. The finding may be secondary to cystitis or chronic bladder outlet obstruction. Recommend clinical correlation. 4. Mildly enlarged prostate. 5. Mild diverticulosis. No acute diverticulitis. Dictated by: Tania Baumann M.D. on 08/15/2022 at 12:41 Approved by: Tania Baumann M.D. on 08/15/2022 at 13:32
== END ==
PROVIDERS: PCP Internal Medicine; Referring Provider Internal Medicine; Visit Provider Internal Medicine
DX: N20.0 Calculus of kidney (principal); K57.90 Diverticulosis of intestine, part unspecified, without perforation or abscess without bleeding; N40.0 Benign prostatic hyperplasia without lower urinary tract symptoms
CPT/HCPCS: 74176

== ENCOUNTER → 2022-08-23 08:38 | Outpatient (CLI) | payer OTHER, SELFPAY ==
[2022-08-23 09:32] LABS: Alanine Aminotransferase 44 IU/L (<50); Albumin 4.2 g/dL (3.5-5.0); Albumin Globulin Ratio 1.4 (1.0-2.8); Alkaline Phosphatase 105 U/L (38-126); Aspartate Aminotransferase 29 IU/L (17-59); BUN Creatinine Ratio 16.3 (6-22); Bilirubin Total 0.8 mg/dL (0.2-1.3); Blood Urea Nitrogen 16 mg/dL (9-20); Calcium 9.4 mg/dL (8.4-10.2); Carbon Dioxide 25 mmol/L (22-32); Chloride 104 mmol/L (98-107); Cholesterol 190 mg/dL (140-199); Estimated Glomerular Filt Rate > 60 mL/min (>60); Globulin 3.1 g/dL (1.7-4.1); Glucose 108 mg/dL (80-110); HDL Cholesterol 39 mg/dL (40-60); HEMOLYSIS < 15 (0-50); Potassium 4.6 mmol/L (3.4-5.1); Sodium 139 mmol/L (137-145); Total Protein 7.3 g/dL (6.3-8.2); Triglycerides 422 mg/dL (35-150)
[2022-08-23 10:00] LABS: Prostate Specific Antigen Scrn 1.89 ng/mL (0.1-4.0)
== END ==
PROVIDERS: PCP Internal Medicine; Referring Provider Internal Medicine; Visit Provider Internal Medicine
DX: Z12.5 Encounter for screening for malignant neoplasm of prostate (principal); E78.2 Mixed hyperlipidemia; I10 Essential (primary) hypertension
CPT/HCPCS: 36415; 80053; 80061; G0103

== ENCOUNTER → 2022-09-04 14:33 | Outpatient (CLI) | payer OTHER, SELFPAY | PROVIDERS: PCP Internal Medicine; Visit Provider Specialist | DX: N52.9 Male erectile dysfunction, unspecified (principal); N20.0 Calculus of kidney; N40.1 Benign prostatic hyperplasia with lower urinary tract symptoms; N13.8 Other obstructive and reflux uropathy | CPT/HCPCS: 81002; 87086 ==

== ENCOUNTER → 2022-10-02 10:57 | Outpatient (CLI) | payer OTHER, SELFPAY ==
--- NOTE | 2022-10-02 10:58 | DI.RAD.S_ITS ---
PROCEDURE: XR KUB INDICATIONS: Kidney stone TECHNIQUE: One view of the abdomen acquired. COMPARISON: [facility], CT, CT KIDNEY URETER BLADDER (KUB), 08/15/2022, 12:03. FINDINGS: Surgical changes and devices: None. Bowel: Bowel gas pattern is normal. Soft tissues: Multiple small calcifications project over the lower pole of the right kidney compatible with known renal stones. Stones are without change in size or number. Visualized solid organ contours appear normal in size. Bones: No suspicious bony lesions. IMPRESSION: Stable left renal stones. Dictated by: Era Farrell MD, PhD on 10/02/2022 at 13:53 Approved by: Era Farrell MD, PhD on 10/02/2022 at 13:55
== END ==
PROVIDERS: PCP Internal Medicine; Referring Provider Specialist; Visit Provider Specialist
DX: N20.0 Calculus of kidney (principal)
CPT/HCPCS: 36415; 74018; 84550

== ENCOUNTER → 2022-10-02 17:21 | Outpatient (CLI) | payer OTHER, SELFPAY | PROVIDERS: PCP Internal Medicine; Referring Provider Specialist; Visit Provider Specialist | DX: N20.0 Calculus of kidney (principal) | CPT/HCPCS: 36415; 84550 ==

== ENCOUNTER 2022-11-02 09:00 | Day surgery (SDC) | payer OTHER, SELFPAY ==
[2022-10-31 14:24] VITALS: BMI 32.8
[2022-11-02] VITALS (8 sets, daily range): BP systolic 141–160; BP diastolic 86–101; PULSE 63–75; RESP 12–16; TEMP 36.2–37; O2SAT 93–98; BMI 33.9
--- NOTE | 2022-11-02 | DI.RAD.S_ITS ---
PROCEDURE: XR KUB INDICATIONS: Left nephrolithiasis TECHNIQUE: One view of the abdomen acquired. COMPARISON: [facility], CR, XR KUB, 10/02/2022, 10:58. FINDINGS: Surgical changes and devices: None. Bowel: Bowel gas pattern is normal. Soft tissues: Left kidney stone or kidney stone fragment measuring 0.3 cm. No significant interval change. No suspicious abdominal calcifications. Visualized solid organ contours appear normal in size. Bones: No suspicious bony lesions. IMPRESSION: Left kidney stone measuring 0.3 cm. Dictated by: Girish Watt M.D. on 11/02/2022 at 10:20 Approved by: Girish Watt M.D. on 11/02/2022 at 10:21
--- NOTE | 2022-11-02 | PATH_ITS ---
[facility] Accession Number: [id number] No. of containers..01 Tissue . 01 Material submitted: . neck - RIGHT NECK LIPOMA . 01 Diagnosis: Right Neck, Excision: Mature fibroadipose tissue, consistent with lipoma. MRV 11/06/2022 1345 Local . 01 Electronically signed: . Carlos Eduardo Blanco MD, Dermatopathologist NPI- [id number] . 01 Gross description: . The specimen is received in formalin labeled with the patient's name, , and right neck lipoma, and consists of a yellow, lobulated, soft tissue fragment measuring 5.0 x 3.2 x 1.3 cm. The external surface is inked blue. Sectioning reveals a yellow, soft, unremarkable cut surface. [place] Hat Smearer sections are submitted in cassettes A1-A2. ([id number]) /[facility] 11/03/2022 1643 Local . 01 Pathologist provided ICD-10: D17.9 . 01 CPT . 584426 Specimen Comment: A courtesy copy of this report has been sent to [phone] Performed at: 01 [facility] [address] [place] [address] [id number] MD Joe Hall MD Phone: [phone]
--- NOTE | 2022-11-02 10:29 | PM.PREOP ---
Pre-operative Note COVID-19 Criteria for continued procedure: Expected advancement of disease process, Possibility delay results in more complex future surgery or treatment, Continuing or worsening of significant or severe pain, Deterioration of the patient's condition or overall health, Delay expected to result in less-positive ultimate med/surg outcome and Non-surgical alternatives not available or appropriate per current SOC Interval Note History & Physical reviewed/Exam performed by Physician: Yes Changes to H&P: No
[2022-11-02] MEDS: LACTATED RINGERS 1,000 ML 21 ML IV ×2 (10:37→12:22)
[2022-11-02] MEDS: FAMOTIDINE 20 MG/2 ML VIAL IV (11:01)
[2022-11-02] MEDS: CEFAZOLIN 2 GM/100 ML PREMIX 100 ML IV (11:04)
--- NOTE | 2022-11-02 11:04 | PM.HP.1 ---
History of Present Illness History of Present Illness Chief complaint: Left Extracorporeal Shock Wave Lithotripsy/Excisio Narrative: Mr. Dunn presents today a lithotripsy with Dr. Conway. He additionally has a 3 cm lipoma on his right neck. The lipoma has been present for several years now. It is increasing slowly in size. It is become symptomatic it sometimes itches and is bothersome during his daily life. It has never had any skin changes or erythema around it and is soft and mobile. Patient History Medical History (Updated 11/02/22 @ 11:08 by Luisa Shoemaker MD) Arthritis Bilateral nephrolithiasis BPH w urinary obs/LUTS Easy bruisability Heartburn HTN (hypertension) Hyperlipemia Migraines Treadmill stress test negative for angina pectoris (06/28/16) Surgical History (Updated 11/02/22 @ 09:43 by Mamadou Baugh RN) History of colonoscopy (2019) History of hernia surgery History of surgery on wrist (2014) Hx of appendectomy (2019) Hx of elbow surgery (2002) Hx of tonsillectomy (1964) Family & Social History Family History Brother Heart disease Diabetes mellitus Hearing impairment Mother Stroke Father Heart disease Cancer Hyperlipidemia Hypertension Grandfather Heart disease Kidney stones Family/Other Cancer Social History: household members spouse Tobacco & Substance use: Smoking Status Never smoker alcohol intake current alcohol intake frequency holiday/special occasion Substance Use Type does not use Meds Home Medications and Allergies Home Medications Medication Instructions Recorded Confirmed Type cyclobenzaprine 10 mg tablet 10 mg PO BEDTIME PRN Muscle Spasm 08/05/19 11/02/22 History fdpykbex-zdk-ptfcw acid 0.4 1 tab PO DAILY 08/05/19 11/02/22 History mg-lycopene 300 mcg-lutein 250 mcg tablet (Centrum Silver) sildenafil (pulm.hypertension) 20 100 mg PO DAILY PRN sexual activity 09/11/19 10/10/22 History mg tablet metoprolol succinate 50 mg 50 mg PO DAILY #90 tabs 01/09/22 11/02/22 Rx tablet,extended release 24 hr nitroglycerin 0.4 mg sublingual 0.4 mg sublingual Q5M PRN Chest 01/09/22 11/02/22 Rx tablet Pain #50 tabs rosuvastatin 40 mg tablet 40 mg PO DAILY #90 tabs 01/09/22 11/02/22 Rx oxycodone 5 mg tablet 5 mg PO Q4H PRN pain #14 tabs 11/02/22 Rx Allergies Allergy/AdvReac Type Severity Reaction Status Date / Time atorvastatin AdvReac Intermediate aches/pains Verified 11/02/22 09:43 Exam Vital Signs (past 8 hours): - 11/02/22 10:16 Temperature 98.6 F Pulse Rate 66 Respiratory Rate 16 Blood Pressure 156/92 H Pulse Oximetry 95 Oxygen Delivery Method Room Air Oxygen Delivery Method Room Air Const General: cooperative, healthy appearing and comfortable [facility] Head: normal to inspection Other: The lipoma is freely mobile about 3 cm in diameter does not appear to be attached to underlying structures well-circumscribed and soft. It is located on the right neck just few cm inferior and posterior to his ear lobe Eyes General: appearance normal, both eyes and all related structures Resp Effort & Inspection: normal respiratory effort and able to speak in complete sentences Cardio Pulses: radial pulses present GI Palpation: soft and No tender Skin General: no rashes or lesions noted Assessment & Plan Assessment and plan (1) Lipoma: Problem details: Neck right side, 3 cm approximate diameter Qualifiers: Lipoma location: neck Qualified Code(s): D17.0 - Benign lipomatous neoplasm of skin and subcutaneous tissue of head, face and neck Status: Acute Assessment & Plan narrative: I discussed the risks benefits and alternatives of excision of the lipoma during his anesthetic for his lithotripsy. He understands this and would like to proceed. We discussed specifically the risk of infection and wound healing issues. Time Spent With Patient Critical Care time: I spent a total of [] minutes of critical care time on this patient's care today; this time is exclusive of procedural time.
--- NOTE | 2022-11-02 11:26 | SUR.OPER ---
Supine on ESWL Table, head on pillow, arms padded and tucked at sides, legs uncrossed, safety belt at thigh, tape over blanket over lower legs .
--- NOTE | 2022-11-02 11:27 | SUR.OPER ---
Lateral on a matson bag, head on pillow, gel axillary roll in place, bottom leg bent with gel pad under knee to foot, upper leg straight and supported with pillows. Upper arm supported by pillows and secured over bottom arm to padded arm board. Safety belt at hip, tape over blanket lower legs.
--- NOTE | 2022-11-02 12:01 | PM.OP.1 ---
Operative Date/Time/Diagnoses Date of procedure: 11/02/22 Time of procedure: 11:45 Pre-op diagnosis: 1. 5 x 6 mm left renal calculus. 2. History of left renal colic Post-op diagnosis: same Procedure & Clinicians Procedure: 1. Left extracorporeal shockwave lithotripsy (maximal power level 7.0 x 2000 shocks). Same procedure as scheduled: Yes Indications: 1. 5 x 6 mm left renal calculus. 2. History of left renal colic. Surgeon: Neal Conway Click Yes if Unassisted: Yes Anesthesia Type: General Operative Notes Findings: Index calculus unchanged in position compared to preoperative imaging. Estimated Blood Loss (mL): 0 Procedure in detail: The patient was positioned supine and was administered general anesthesia. The above-described index calculus was localized in the X, Y, and Z plane. Lithotripsy was begun at minimal power level for 200 shocks. A 2 minute pause was then conducted. Lithotripsy was then resumed and power level was gradually increased to a maximum of 7.0. At 2000 shocks there was excellent radiographic evidence of stone comminution and the procedure was halted. Patient was then awakened, transferred to [facility], and transferred to recovery in stable condition. Complications: none Post-operative Condition: stable Disposition: PACU Plan for aftercare: Discharge home.
[2022-11-02] MEDS: BUPIVACAINE 0.25% (PF) VIAL 30 ML INJ (12:18)
[2022-11-02] MEDS: BUPIVACAINE 0.25% (PF) 30 ML, EPINEPHrine 0.15 MG INJ (12:18)
--- NOTE | 2022-11-02 13:15 | P.OP_ITS ---
Procedure & Clinicians Procedure: Excision benign lesion right neck size 3 cm Same procedure as scheduled: Yes Indications: Symptomatic lesion Surgeon: Luisa Shoemaker Click Yes if Unassisted: Yes Anesthesia Type: General Operative Notes Specimen(s): other (Lipoma) Procedure in detail: Patient was under anesthesia for his previous lithotripsy. Time-out was performed. The patient was turned to a left lateral decubitus position. The neck overlying the mass was prepped and draped in the usual sterile fashion. Bupivacaine with epinephrine was infused around the area. An incision was made along the hairline using 15 blade scalpel. The incision was carried down around the subcutaneous area. A Metzenbaum scissors and blunt finger dissection was used to come around a lipomatous like lesion. The lesion did abut the posterior fascia of the musculature of the neck. At a few times the fascia was incised. There was a minimal amount of bleeding from the muscle below. The lipoma was removed and came out. There was little area that extended medially that came out separately. Believe these were 2 sections of the same lipoma. Size of the lesion measured at 4 cm in the maximal diameter. After removal of the lesion the small openings in the fascia were closed with interrupted 0 Vicryl sutures. Closing these small defects in the fascia created a hemostatic wound. No electrocautery was necessary. The subcutaneous tissue was closed with 3-0 Vicryl. The remainder of the local anesthesia was infused around the area. The skin was then closed with 4-0 running Monocryl. And dressed with a Steri- Strips. A 2 x 2 and Tegaderm was placed overlying this. Patient tolerated the procedure well and went in good condition to the postoperative care unit. Complications: none Post-operative Condition: stable Disposition: PACU
[2022-11-02] MEDS: LABETALOL 20 MG/4 ML SYRINGE 10 MG IV (13:39)
== END 2022-11-02 14:14 | disposition home or self-care (01) ==
PROVIDERS: Surgery; PCP Internal Medicine; Referring Provider Specialist; Visit Provider Specialist
PROC: (CPT 50590; principal; 2022-11-02 12:15)
PROC: (CPT 21552; 2022-11-02 12:15)
DX: N20.0 Calculus of kidney (principal); D17.0 Benign lipomatous neoplasm of skin and subcutaneous tissue of head, face and neck; L29.9 Pruritus, unspecified
CPT/HCPCS: 50590; 21552; 74018; 82962; J0171; J0690; J1100; J1885; J2405; J2704; J3010; J3490

== ENCOUNTER → 2023-07-08 12:39 | Outpatient (CLI) | payer OTHER, SELFPAY ==
[2023-07-08 13:31] LABS: Alanine Aminotransferase 48 IU/L (<50); Albumin 4.4 g/dL (3.5-5.0); Albumin Globulin Ratio 1.4 (1.0-2.8); Alkaline Phosphatase 82 U/L (38-126); Aspartate Aminotransferase 38 IU/L (17-59); Bilirubin Total 0.9 mg/dL (0.2-1.3); Blood Urea Nitrogen 17 mg/dL (9-20); Calcium 9.8 mg/dL (8.4-10.2); Carbon Dioxide 25 mmol/L (22-32); Chloride 104 mmol/L (98-107); Cholesterol 200 mg/dL (140-199); Estimated Glomerular Filt Rate > 60 mL/min (>60); Globulin 3.2 g/dL (1.7-4.1); Glucose 97 mg/dL (80-110); HDL Cholesterol 42 mg/dL (40-60); HEMOLYSIS 18 (0-50); LDL Cholesterol Calculated 84 mg/dL (<100); Potassium 4.7 mmol/L (3.4-5.1); Sodium 137 mmol/L (137-145); Total Protein 7.6 g/dL (6.3-8.2); Triglycerides 368 mg/dL (35-150)
[2023-07-08 13:42] LABS: LDL Cholesterol Direct 100 mg/dL (<100)
== END ==
PROVIDERS: PCP Internal Medicine; Referring Provider Internal Medicine; Visit Provider Internal Medicine
DX: I10 Essential (primary) hypertension (principal); E78.5 Hyperlipidemia, unspecified
CPT/HCPCS: 36415; 80053; 80061; 83721

== ENCOUNTER → 2023-07-09 15:40 | Outpatient (CLI) | payer OTHER, SELFPAY ==
--- NOTE | 2023-07-09 15:41 | DI.RAD.S_ITS ---
PROCEDURE: XR SHOULDER LT MIN 2V INDICATIONS: pain TECHNIQUE: 3 views of the shoulder were acquired. COMPARISON: None. FINDINGS: Bones: No fractures or dislocations. No suspicious bony lesions. Visualized ribs appear intact. Moderate left glenohumeral joint osteoarthritis with large humeral head osteophyte. Soft tissues: No suspicious soft tissue calcifications. IMPRESSION: Moderate left glenohumeral joint osteoarthritis. Dictated by: Era Farrell MD, PhD on 07/09/2023 at 16:12 Approved by: Era Farrell MD, PhD on 07/09/2023 at 16:12
== END ==
PROVIDERS: PCP Internal Medicine; Referring Provider Internal Medicine; Visit Provider Internal Medicine
DX: M19.012 Primary osteoarthritis, left shoulder (principal); M25.512 Pain in left shoulder
CPT/HCPCS: 73030

== ENCOUNTER 2024-03-10 10:30 | Outpatient (RCR) | payer OTHER, SELFPAY ==
--- NOTE | 2024-02-05 08:42 | PT.OIE ---
Current Diagnoses Pain in left shoulder (02/05/24) Past Medical History (Last Updated 07/08/23 @ 10:17 by Esdras Ojeda MD) Arthritis Bilateral nephrolithiasis BPH w urinary obs/LUTS Easy bruisability Heartburn HTN (hypertension) Hyperlipemia Lipoma Migraines Treadmill stress test negative for angina pectoris (06/28/16) Past Surgical History (Last Updated 11/02/22 @ 09:43 by Mamadou Baugh RN) History of colonoscopy (2019) History of hernia surgery History of surgery on wrist (2014) Hx of appendectomy (2019) Hx of elbow surgery (2002) Hx of tonsillectomy (1964) Visit Care Team Role Provider Type Esdras Ojeda MD Attending Provider Physician Family Provider Primary Care Provider Referring Provider Specialty: Internal Medicine Address: [address] [place] [address], [address], [facility] Email: [email or web address] Physical Therapy Initial Evaluation PT-OP-A Visit Information Start: 02/04/24 17:04 Freq: Status: Active Protocol: Document 02/05/24 08:16 SAK (Rec: 02/06/24 17:13 SAK [id number]) Out-Patient Physical Therapy Visit Information Visit Information Visit Type Initial Evaluation Visit Start Time 08:15 Visit Stop Time 09:05 Visit Number 1 Evaluation Information Evaluation Date 02/05/24 Precautions Precautions HTN, back pain, arthritis PT-OP-B Current Condition Start: 02/04/24 17:04 Freq: Status: Active Protocol: Document 02/05/24 08:16 SAK (Rec: 02/05/24 09:00 SAK [id number]) Current Condition History of Current Condition Onset Date 2 years Current Complaints left shoulder pain History of Current Condition Was carrying a lamp down the stairs, reached forward to hand to and felt a slip in left shoulder. Progressively worse, shoulder pops and cracks, inc difficulty putting coat on, reaching behind back, and can' t reach overhead. Pain can increase to a 9/10, feels like pops forward. Denies N/T. REports shoulder clicks and grinds. Patient is right handed. Has had no treatment for shoulder. Walks for exercise, no UE ex. Prior Treatments and Tests x-ray: mod osteoarthritis Future Testing and Treatments Planned Potential MRI after PT completed Treatment Goals Patient/Caregiver Goals Decrease left shoulder pain and regain ability to use as prior to injury Prior Functional Status Baseline Function- ADL's Independent Baseline Function- Mobility Independent Baseline Function- Work/School retired Baseline Function- Recreation/Hobbies reading, attending sports functions, metal detecting Current Functional Impairments (Reported) Functional Limitations- ADL's painful reach overhead, behind back, put clothes on, can't lay on left side Functional Limitations- Recreation/ painful Hobbies PT-OP-C Subjective Start: 02/04/24 17:04 Freq: Status: Active Protocol: Document 02/05/24 08:16 SAK (Rec: 02/05/24 09:00 [facility] [id number]) Patient Questionnaires Quick Dash- Upper Extremity Quick Dash UE Score 36 OP-PT Pain Assessment Pain Assessment Grid Paper Pain Assessment Grid Completed Yes Location left shoulder Intensity 9 Description Aching,Chronic,Pressure,Sharp, Shooting,With Movement Frequency Frequent Pain Aggravating Factors Activity,Exercise Other Pain Aggravating Factors reaching Pain Alleviating Factors Inactivity,Rest Comments Pain Comments Pain inc to 9/10 at worst PT-OP-E Functional Tests Start: 02/04/24 17:04 Freq: Status: Active Protocol: Document 02/05/24 08:16 SAK (Rec: 02/06/24 17:11 [facility] [id number]) Functional Tests Apley's Scratch Test Action 1- Left ant shoulder Action 1- Right post shoulder Action 2- Left lateral neck Action 2- Right T1 Action 3- Left lateral hip Action 3- Right T11 PT-OP-F Manual Assessment Start: 02/04/24 17:04 Freq: Status: Active Protocol: Document 02/05/24 08:16 SAK (Rec: 02/06/24 17:11 [facility] [id number]) Manual Assessments Joint Mobility Assessment Joint Mobility Assessment dec post and inf glide left shoulder PT-OP-H Neuro Start: 02/04/24 17:04 Freq: Status: Active Protocol: Document 02/05/24 08:16 SAK (Rec: 02/05/24 09:00 SAK [id number]) Sensation Evaluation Gross Sensation Gross Sensation WNL PT-OP-J Posture/Palpation/Skin Start: 02/04/24 17:04 Freq: Status: Active Protocol: Document 02/05/24 08:16 SAK (Rec: 02/05/24 09:00 [facility] [id number]) Posture Evaluation Position Sitting Head/C-Spine Posture Forward Head T-Spine Posture Increased Kyphosis Shoulder Posture (L) Rounded,(R) Rounded,(L) Forward Scapula Posture (L) Protracted,(R) Protracted, (L) Elevated Arm Posture (L) Internally Rotated,(R) Internally Rotated PT-OP-K Range of Motion Start: 02/04/24 17:04 Freq: Status: Active Protocol: Document 02/05/24 08:16 SAK (Rec: 02/05/24 09:00 [facility] [id number]) Cervical Spine Range of Motion Cervical Spine Active Testing Position Sitting ROM Limitations Soft Tissue Tightness,Bony Restriction Comments mild dec all motions Shoulder Goniometric Range of Motion Shoulder Right Shoulder ROM WFL Yes Left Testing Position Sitting Flexion 72 Extension 10 Abduction 37 Horizontal Abduction 72 Horizontal Adduction 21 External Rotation at 45 degrees 14 Abduction Internal Rotation Behind Back (text) lateral hip Elbow/Forearm Range of Motion Elbow/Forearm yris Elbow/Forearm ROM WFL Yes PT-OP-L Special Tests Start: 02/04/24 17:04 Freq: Status: Active Protocol: Document 02/05/24 08:16 SAK (Rec: 02/06/24 17:11 [facility] [id number]) Special Tests Shoulder Special Tests Passive ER Rotator Cuff Test Results +L Drop Arm Rotator Cuff Test Results +L Belly Press Test Results +L PT-OP-M Strength Start: 02/04/24 17:04 Freq: Status: Active Protocol: Document 02/05/24 08:16 SAK (Rec: 02/06/24 17:11 [facility] [id number]) Shoulder Strength Shoulder Manual Muscle Testing Left Flexion 3- Fair- Extension 3- Fair- Abduction (C5) 3- Fair- Adduction 3+ Fair+ External Rotation 3- Fair- Internal Rotation 3+ Fair+ Right Flexion 5 Normal Extension 5 Normal Abduction (C5) 5 Normal Adduction 5 Normal External Rotation 5 Normal Internal Rotation 5 Normal Elbow/Forearm Strength Elbow and Forearm Manual Muscle Testing Left Flexion (C6) 4 Good Extension (C7) 4 Good Right Flexion (C6) 5 Normal Extension (C7) 5 Normal PT-OP-Q Treatments Start: 02/04/24 17:04 Freq: Status: Active Protocol: Document 02/05/24 08:16 SAK (Rec: 02/06/24 17:11 [facility] [id number]) Self-Care/Home Management Treatment Education Patient Education Home Exercise Program,Joint Protection,Posture Other Education issued written HO PT-OP-R Modalities Start: 02/04/24 17:04 Freq: Status: Active Protocol: Document 02/05/24 08:16 RONALD (Rec: 02/06/24 17:11 [facility] [id number]) Hot Pack/Cold Pack Treatment Cold Pack Location left shoulder Patient Position Sitting Patient Tolerance Good PT-OP-T Assessment and Plan Start: 02/04/24 17:04 Freq: Status: Active Protocol: Document 02/05/24 08:16 [facility] (Rec: 02/06/24 17:11 [facility] [id number]) Physical Therapy Assessment Rehab Potential Rehabilitation Potential Good Evaluation Complexity Number of Personal Factors/Comorbidities 1-2 Number of Body Systems Impaired 3 Clinical Presentation at Evaluation Evolving Impairments Impairments Functional Activities,Pain,ROM ,Strength Goals Three Impairment unable to reach overhead or behind his back for purposes of ADL's Snf Goal (LTG) Patient will be able to reach overhead and behind his back to be able to resume ADL's without pain LTG Duration 05/07/24 Two Impairment activity intolerance Impairment Quickdash UE disability index score 36% Short Term Goal (STG) Improve Quickdash score to no greater than 18% as measure of improved activity tolerance STG Duration 03/26/24 Snf Goal (LTG) Improve Quidash score to no greater than 9% as measure of improved activity tolerance and quality of life LTG Duration 05/07/24 One Impairment right shoulder pain Impairment as high as 9/10 Short Term Goal (STG) Decrease pain to no greater than 5/10 with all usual activities STG Duration 03/26/24 Snf Goal (LTG) Decrease pain to no greater than 2/10 with all usual activities LTG Duration 05/07/24 Assessment Summary Assessment Patient presents to PT with function-limiting pain left shoulder after injury sustained 2 years ago while lifting an object during which he felt a slip. Patient unable to reach overhead, behind his back, or out to the side without increase in pain . Unable to lay on his left side. C/o clicking and popping in shoulder. Pain level can be as high as 9/10 with activity. x-ray showed moderate osteoarthrits. No MRI until completes PT. Signs and symptoms are consistent with rotator cuff injury, with compensatory soft tissue tightnening and compensation. Feel he would benefit highly from PT to decrease his pain, improve his ROM, strength, and function of his left shoulder . POC was discussed and patient was in agreement. He appears highly motivated. Feel further imaging likely indicated. Physical Therapy Plan Frequency and Duration Frequency of Treatment 2x/Week Duration of treatment (weeks) 12 Plan of Care Start Date 02/05/24 Plan of Care End Date 05/07/24 Therapeutic Interventions Therapeutic Interventions Home Exercise Program,Joint Mobilizations,Manual Therapy, Patient/Caregiver Education, Self-Care/Home Management,Soft Tissue Mobilization,Taping, Therapeutic Activities, Therapeutic Exercises Modalities Cold Pack/Ice Massage,Electric Stimulation,Hot Packs, Infrared Therapy,Iontophoresis ,Ultrasound Next Visit Focus/Plan Next Note Type Treatment Note Next Visit Plan Review HEP, gentle joint mobs, instruct shoulder isometrics. Consider cold laser treatment, KT tape
--- NOTE | 2024-02-05 08:43 | PT.OPPOC ---
Physical, Occupational & Speech Therapy At [facility] Current Diagnoses Pain in left shoulder (02/05/24) Visit Care Team Role Provider Type Esdras Ojeda MD Attending Provider Physician Family Provider Primary Care Provider Referring Provider Specialty: Internal Medicine Address: [address] [place] [address], [id number] Email: [email or web address] Plan Of Care PT-OP-T Assessment and Plan Start: 02/04/24 17:04 Freq: Status: Active Protocol: Document 02/05/24 08:16 SAK (Rec: 02/06/24 17:11 SAK [id number]) Physical Therapy Assessment Rehab Potential Rehabilitation Potential Good Evaluation Complexity Number of Personal Factors/Comorbidities 1-2 Number of Body Systems Impaired 3 Clinical Presentation at Evaluation Evolving Impairments Impairments Functional Activities,Pain,ROM ,Strength Goals Three Impairment unable to reach overhead or behind his back for purposes of ADL's Half-Way Goal (LTG) Patient will be able to reach overhead and behind his back to be able to resume ADL's without pain LTG Duration 05/07/24 Two Impairment activity intolerance Impairment Quickdash UE disability index score 36% Short Term Goal (STG) Improve Quickdash score to no greater than 18% as measure of improved activity tolerance STG Duration 03/26/24 Plater Helper Goal (LTG) Improve Quidash score to no greater than 9% as measure of improved activity tolerance and quality of life LTG Duration 05/07/24 One Impairment right shoulder pain Impairment as high as 9/10 Short Term Goal (STG) Decrease pain to no greater than 5/10 with all usual activities STG Duration 03/26/24 Plater Helper Goal (LTG) Decrease pain to no greater than 2/10 with all usual activities LTG Duration 05/07/24 Assessment Summary Assessment Patient presents to PT with function-limiting pain left shoulder after injury sustained 2 years ago while lifting an object during which he felt a slip. Patient unable to reach overhead, behind his back, or out to the side without increase in pain . Unable to lay on his left side. C/o clicking and popping in shoulder. Pain level can be as high as 9/10 with activity. x-ray showed moderate osteoarthrits. No MRI until completes PT. Signs and symptoms are consistent with rotator cuff injury, with compensatory soft tissue tightnening and compensation. Feel he would benefit highly from PT to decrease his pain, improve his ROM, strength, and function of his left shoulder . POC was discussed and patient was in agreement. He appears highly motivated. Feel further imaging likely indicated. Physical Therapy Plan Frequency and Duration Frequency of Treatment 2x/Week Duration of treatment (weeks) 12 Plan of Care Start Date 02/05/24 Plan of Care End Date 05/07/24 Therapeutic Interventions Therapeutic Interventions Home Exercise Program,Joint Mobilizations,Manual Therapy, Patient/Caregiver Education, Self-Care/Home Management,Soft Tissue Mobilization,Taping, Therapeutic Activities, Therapeutic Exercises Modalities Cold Pack/Ice Massage,Electric Stimulation,Hot Packs, Infrared Therapy,Iontophoresis ,Ultrasound Next Visit Focus/Plan Next Note Type Treatment Note Next Visit Plan Review HEP, gentle joint mobs, instruct shoulder isometrics. Consider cold laser treatment, KT tape Plan of Care Dates Plan of Care Start Date 02/05/24 Plan of Care End Date 05/07/24 Electronically Signed by: Merary Jain, PT 02/09/24 0843 If you are in agreement with this Plan of Care, please return a signed and dated copy. I have reviewed this Plan of Care and certify that the skilled therapy services above are required to meet the patient?s needs. Physician Signature Date Printed Name and Credentials Clinical Instructor Signature Printed Name and Credentials
--- NOTE | 2024-02-10 11:45 | PT.OTN ---
Current Diagnoses Pain in left shoulder (02/10/24) Physical Therapy Treatment Note PT-OP-A Visit Information Start: 02/04/24 17:04 Freq: Status: Active Protocol: Document 02/10/24 10:31 SAK (Rec: 02/10/24 11:45 [facility] [id number]) Out-Patient Physical Therapy Visit Information Visit Information Visit Type Treatment Note Visit Start Time 10:31 Visit Number 2 Evaluation Information Evaluation Date 02/05/24 Precautions Precautions HTN, back pain, arthritis PT-OP-B Current Condition Start: 02/04/24 17:04 Freq: Status: Active Protocol: Document 02/10/24 10:31 SAK (Rec: 02/10/24 11:45 [facility] [id number]) Current Condition History of Current Condition Onset Date 2 years Current Complaints left shoulder pain History of Current Condition Was carrying a lamp down the stairs, reached forward to hand to and felt a slip in left shoulder. Progressively worse, shoulder pops and cracks, inc difficulty putting coat on, reaching behind back, and can' t reach overhead. Pain can increase to a 9/10, feels like pops forward. Denies N/T. REports shoulder clicks and grinds. Patient is right handed. Has had no treatment for shoulder. Walks for exercise, no UE ex. Prior Treatments and Tests x-ray: mod osteoarthritis Future Testing and Treatments Planned Potential MRI after PT completed PT-OP-C Subjective Start: 02/04/24 17:04 Freq: Status: Active Protocol: Document 02/10/24 10:31 SAK (Rec: 02/10/24 11:45 [facility] [id number]) OP-PT Subjective Patient Comments Patient Comments Went shrimping on , was very sore, tried to keep elbow in but was too much. Did exercises some but was out of town at a wedding over the weekend. PT-OP-E Functional Tests Start: 02/04/24 17:04 Freq: Status: Active Protocol: Document 02/05/24 08:16 SAK (Rec: 02/06/24 17:11 [facility] [id number]) Functional Tests Williamey's Scratch Test Action 1- Left ant shoulder Action 1- Right post shoulder Action 2- Left lateral neck Action 2- Right T1 Action 3- Left lateral hip Action 3- Right T11 PT-OP-F Manual Assessment Start: 02/04/24 17:04 Freq: Status: Active Protocol: Document 02/05/24 08:16 SAK (Rec: 02/06/24 17:11 SAK [id number]) Manual Assessments Joint Mobility Assessment Joint Mobility Assessment dec post and inf glide left shoulder PT-OP-H Neuro Start: 02/04/24 17:04 Freq: Status: Active Protocol: Document 02/05/24 08:16 SAK (Rec: 02/05/24 09:00 SAK [id number]) Sensation Evaluation Gross Sensation Gross Sensation WNL PT-OP-J Posture/Palpation/Skin Start: 02/04/24 17:04 Freq: Status: Active Protocol: Document 02/05/24 08:16 SAK (Rec: 02/05/24 09:00 SAK [id number]) Posture Evaluation Position Sitting Head/C-Spine Posture Forward Head T-Spine Posture Increased Kyphosis Shoulder Posture (L) Rounded,(R) Rounded,(L) Forward Scapula Posture (L) Protracted,(R) Protracted, (L) Elevated Arm Posture (L) Internally Rotated,(R) Internally Rotated PT-OP-K Range of Motion Start: 02/04/24 17:04 Freq: Status: Active Protocol: Document 02/05/24 08:16 SAK (Rec: 02/05/24 09:00 SAK [id number]) Cervical Spine Range of Motion Cervical Spine Active Testing Position Sitting ROM Limitations Soft Tissue Tightness,Bony Restriction Comments mild dec all motions Shoulder Goniometric Range of Motion Shoulder Right Shoulder ROM WFL Yes Left Testing Position Sitting Flexion 72 Extension 10 Abduction 37 Horizontal Abduction 72 Horizontal Adduction 21 External Rotation at 45 degrees 14 Abduction Internal Rotation Behind Back (text) lateral hip Elbow/Forearm Range of Motion Elbow/Forearm yris Elbow/Forearm ROM WFL Yes PT-OP-L Special Tests Start: 02/04/24 17:04 Freq: Status: Active Protocol: Document 02/05/24 08:16 SAK (Rec: 02/06/24 17:11 SAK [id number]) Special Tests Shoulder Special Tests Passive ER Rotator Cuff Test Results +L Drop Arm Rotator Cuff Test Results +L Belly Press Test Results +L PT-OP-M Strength Start: 02/04/24 17:04 Freq: Status: Active Protocol: Document 02/05/24 08:16 SAK (Rec: 02/06/24 17:11 SAK [id number]) Shoulder Strength Shoulder Manual Muscle Testing Left Flexion 3- Fair- Extension 3- Fair- Abduction (C5) 3- Fair- Adduction 3+ Fair+ External Rotation 3- Fair- Internal Rotation 3+ Fair+ Right Flexion 5 Normal Extension 5 Normal Abduction (C5) 5 Normal Adduction 5 Normal External Rotation 5 Normal Internal Rotation 5 Normal Elbow/Forearm Strength Elbow and Forearm Manual Muscle Testing Left Flexion (C6) 4 Good Extension (C7) 4 Good Right Flexion (C6) 5 Normal Extension (C7) 5 Normal PT-OP-Q Treatments Start: 02/04/24 17:04 Freq: Status: Active Protocol: Document 02/10/24 10:31 [facility] (Rec: 02/10/24 11:45 [facility] [id number]) Therapeutic Exercises Supine Exercises shld ab Supine Exercise Name PROM Side left Reps/Minutes 10 Comments pain-free ROM Shld ER Supine Exercise Name PROM Side left Equipment Used towel roll under distal elbow Reps/Minutes 10x2 Comments pain-free ROM, max 20 deg Sitting Exercises pulleys Reps/Minutes 7x Comments painful and with excess shoulder elevation even with changed house moving supervisor trunk rotation Reps/Minutes 3x Comments cues for deep breaths Standing Exercises pendulum Reps/Minutes 10x Comments cues for letting arm hang heavy, use body to move shoulder flex Standing Exercise Name theraball roll Equipment Used 65 cm ball, table Reps/Minutes 10x sh IR/ER long axis Reps/Minutes 5x shoulder rolls Reps/Minutes 5x shoulder shrug Reps/Minutes 5x Manual Therapy Treatment Soft Tissue Mobilization RC insertion Mobilization Type Cross-Friction Intensity/Depth light Body Position Supine Joint Mobilizations long axis distraction Joint L GH Body Position hookly Reps/Duration 3 min Taping L shoulder Treatment Focus support and pain management Type of Tape KT tape Skin Inspection intact Self-Care/Home Management Treatment Education Patient Education Home Exercise Program,Joint Protection,Posture Other Education updated written HO PT-OP-R Modalities Start: 02/04/24 17:04 Freq: Status: Active Protocol: Document 02/10/24 10:31 [facility] (Rec: 02/10/24 11:45 [facility] [id number]) Hot Pack/Cold Pack Treatment Cold Pack Location left shoulder Patient Position Sitting Patient Tolerance Good Infrared Treatment Treatment Left Proximal Shoulder Body Position Sitting Continuous/Pulsed cont Program or Protocal chronic pain and stiffness Comments 6 locations PT-OP-T Assessment and Plan Start: 02/04/24 17:04 Freq: Status: Active Protocol: Document 02/10/24 10:31 [facility] (Rec: 02/10/24 11:45 [facility] [id number]) Physical Therapy Assessment Goals Three Impairment unable to reach overhead or behind his back for purposes of ADL's Planer Setup Operator Goal (LTG) Patient will be able to reach overhead and behind his back to be able to resume ADL's without pain LTG Duration 05/07/24 Two Impairment activity intolerance Impairment Quickdash UE disability index score 36% Short Term Goal (STG) Improve Quickdash score to no greater than 18% as measure of improved activity tolerance STG Duration 03/26/24 Planer Setup Operator Goal (LTG) Improve Quidash score to no greater than 9% as measure of improved activity tolerance and quality of life LTG Duration 05/07/24 One Impairment right shoulder pain Impairment as high as 9/10 Short Term Goal (STG) Decrease pain to no greater than 5/10 with all usual activities STG Duration 03/26/24 [facility] Goal (LTG) Decrease pain to no greater than 2/10 with all usual activities LTG Duration 05/07/24 Assessment Summary Assessment Patient tends to overdo with exercises and activity, reported some increased soreness though also some improved mobility. Further instruction for ex in pain- free intensity and ROM with improved performance of ex after instruction. Added ball push on table and pendulum with good tolerance. Poor tolerance for pulleys with inc pain so discontinued. Physical Therapy Plan Frequency and Duration Frequency of Treatment 2x/Week Duration of treatment (weeks) 12 Plan of Care Start Date 02/05/24 Plan of Care End Date 05/07/24 Therapeutic Interventions Therapeutic Interventions Home Exercise Program,Joint Mobilizations,Manual Therapy, Patient/Caregiver Education, Self-Care/Home Management,Soft Tissue Mobilization,Taping, Therapeutic Activities, Therapeutic Exercises Modalities Cold Pack/Ice Massage,Electric Stimulation,Hot Packs, Infrared Therapy,Iontophoresis ,Ultrasound Next Visit Focus/Plan Next Note Type Treatment Note Next Visit Plan Assess response to KT tape and cold laser. Continue gentle ther ex, use wand for AAROM ER , flex, ext as tolerated.
--- NOTE | 2024-02-12 09:05 | PT.OTN ---
Current Diagnoses Pain in left shoulder (02/12/24) Physical Therapy Treatment Note PT-OP-A Visit Information Start: 02/04/24 17:04 Freq: Status: Active Protocol: Document 02/12/24 08:17 SP (Rec: 02/12/24 09:06 SP [id number]) Out-Patient Physical Therapy Visit Information Visit Information Visit Type Treatment Note Visit Start Time 08:17 Visit Stop Time 09:05 Visit Number 3 Number of BLOW MOLDING MACHINE OPERATOR Visits 1 Evaluation Information Evaluation Date 02/05/24 Precautions Precautions HTN, back pain, arthritis PT-OP-B Current Condition Start: 02/04/24 17:04 Freq: Status: Active Protocol: Document 02/10/24 10:31 SAK (Rec: 02/10/24 11:45 SAK [id number]) Current Condition History of Current Condition Onset Date 2 years Current Complaints left shoulder pain History of Current Condition Was carrying a lamp down the stairs, reached forward to hand to and felt a slip in left shoulder. Progressively worse, shoulder pops and cracks, inc difficulty putting coat on, reaching behind back, and can' t reach overhead. Pain can increase to a 9/10, feels like pops forward. Denies N/T. REports shoulder clicks and grinds. Patient is right handed. Has had no treatment for shoulder. Walks for exercise, no UE ex. Prior Treatments and Tests x-ray: mod osteoarthritis Future Testing and Treatments Planned Potential MRI after PT completed PT-OP-C Subjective Start: 02/04/24 17:04 Freq: Status: Active Protocol: Document 02/12/24 08:17 SP (Rec: 02/12/24 09:06 SP [id number]) OP-PT Subjective Patient Comments Patient Comments Pt report sore after lasttx. Today upon arrival states anterior L shld sore, even driving L shld little out to side support flex ext elbow starts get irritating having to put arm down and only use R . Pt report thinks laser and ktaping helped. Using modalities home. PT-OP-E Functional Tests Start: 02/04/24 17:04 Freq: Status: Active Protocol: Document 02/05/24 08:16 SAK (Rec: 02/06/24 17:11 SAK [id number]) Functional Tests Williamey's Scratch Test Action 1- Left ant shoulder Action 1- Right post shoulder Action 2- Left lateral neck Action 2- Right T1 Action 3- Left lateral hip Action 3- Right T11 PT-OP-F Manual Assessment Start: 02/04/24 17:04 Freq: Status: Active Protocol: Document 02/05/24 08:16 SAK (Rec: 02/06/24 17:11 SAK [id number]) Manual Assessments Joint Mobility Assessment Joint Mobility Assessment dec post and inf glide left shoulder PT-OP-H Neuro Start: 02/04/24 17:04 Freq: Status: Active Protocol: Document 02/05/24 08:16 SAK (Rec: 02/05/24 09:00 SAK [id number]) Sensation Evaluation Gross Sensation Gross Sensation WNL PT-OP-J Posture/Palpation/Skin Start: 02/04/24 17:04 Freq: Status: Active Protocol: Document 02/05/24 08:16 SAK (Rec: 02/05/24 09:00 SAK [id number]) Posture Evaluation Position Sitting Head/C-Spine Posture Forward Head T-Spine Posture Increased Kyphosis Shoulder Posture (L) Rounded,(R) Rounded,(L) Forward Scapula Posture (L) Protracted,(R) Protracted, (L) Elevated Arm Posture (L) Internally Rotated,(R) Internally Rotated PT-OP-K Range of Motion Start: 02/04/24 17:04 Freq: Status: Active Protocol: Document 02/05/24 08:16 SAK (Rec: 02/05/24 09:00 SAK [id number]) Cervical Spine Range of Motion Cervical Spine Active Testing Position Sitting ROM Limitations Soft Tissue Tightness,Bony Restriction Comments mild dec all motions Shoulder Goniometric Range of Motion Shoulder Right Shoulder ROM WFL Yes Left Testing Position Sitting Flexion 72 Extension 10 Abduction 37 Horizontal Abduction 72 Horizontal Adduction 21 External Rotation at 45 degrees 14 Abduction Internal Rotation Behind Back (text) lateral hip Elbow/Forearm Range of Motion Elbow/Forearm yris Elbow/Forearm ROM WFL Yes PT-OP-L Special Tests Start: 02/04/24 17:04 Freq: Status: Active Protocol: Document 02/05/24 08:16 SAK (Rec: 02/06/24 17:11 SAK [id number]) Special Tests Shoulder Special Tests Passive ER Rotator Cuff Test Results +L Drop Arm Rotator Cuff Test Results +L Belly Press Test Results +L PT-OP-M Strength Start: 02/04/24 17:04 Freq: Status: Active Protocol: Document 02/05/24 08:16 SAK (Rec: 02/06/24 17:11 SAK [id number]) Shoulder Strength Shoulder Manual Muscle Testing Left Flexion 3- Fair- Extension 3- Fair- Abduction (C5) 3- Fair- Adduction 3+ Fair+ External Rotation 3- Fair- Internal Rotation 3+ Fair+ Right Flexion 5 Normal Extension 5 Normal Abduction (C5) 5 Normal Adduction 5 Normal External Rotation 5 Normal Internal Rotation 5 Normal Elbow/Forearm Strength Elbow and Forearm Manual Muscle Testing Left Flexion (C6) 4 Good Extension (C7) 4 Good Right Flexion (C6) 5 Normal Extension (C7) 5 Normal PT-OP-Q Treatments Start: 02/04/24 17:04 Freq: Status: Active Protocol: Document 02/12/24 08:17 SP (Rec: 02/12/24 09:06 SP [id number]) Therapeutic Exercises Supine Exercises serratus press Supine Exercise Name added to HEP Side bilateral Equipment Used dowel Reps/Minutes x5 reps Comments cued slow pacing pnfree range pain FF Supine Exercise Name added to HEP Side bilateral Resistance AAROM- L under hand shld ab Supine Exercise Name PROM Side left Reps/Minutes 10 Comments pain-free ROM Shld ER Supine Exercise Name PROM Side left Equipment Used towel roll under distal elbow Reps/Minutes 10x2 Comments pain-free ROM, max 20 deg Sitting Exercises ER Sitting Exercise Name trialed in PT Side left Resistance ER Equipment Used dowel, towel under arm Reps/Minutes x10 reps trunk rotation Reps/Minutes 3x Comments cues for deep breaths Standing Exercises pendulum Side left Reps/Minutes 10x Comments cues for letting arm hang heavy, use body to move Manual Therapy Treatment Soft Tissue Mobilization RC insertion Body Location Distal pec, prox bicep, RTC distal insertion Mobilization Type Cross-Friction,Sustained Pressure,Other Intensity/Depth light Body Position Supine Comments STMs, sustained pressure with PROM humeral IR/ER and small punching motions- sensitive to pressure and very guarded end feel slow gentle within pnfree range. Joint Mobilizations L shoulder Joint L GH supine & scapulothoracic R SL Direction inferior & posterior, retraction/protraction, superior/inferior glide Grade II Comments slow small pnfree range, guarded GH glides, improved scapulothoracic PROM then AAROM. PT-OP-R Modalities Start: 02/04/24 17:04 Freq: Status: Active Protocol: Document 02/12/24 08:17 SP (Rec: 02/12/24 09:06 SP [id number]) Infrared Treatment Treatment Left Proximal Shoulder Body Position Sitting Continuous/Pulsed cont Program or Protocal chronic pain and stiffness Comments 6 locations PT-OP-T Assessment and Plan Start: 02/04/24 17:04 Freq: Status: Active Protocol: Document 02/12/24 08:17 SP (Rec: 02/12/24 09:06 SP [id number]) Physical Therapy Assessment Goals Three Impairment unable to reach overhead or behind his back for purposes of ADL's Senior Living Goal (LTG) Patient will be able to reach overhead and behind his back to be able to resume ADL's without pain 02/12/24 : added wand FF, serratus press, seated vs supine ER. LTG Duration 05/07/24 progressing 02/12/24 Two Impairment activity intolerance Impairment Quickdash UE disability index score 36% Short Term Goal (STG) Improve Quickdash score to no greater than 18% as measure of improved activity tolerance STG Duration 03/26/24 Sales Manager Goal (LTG) Improve Quidash score to no greater than 9% as measure of improved activity tolerance and quality of life LTG Duration 05/07/24 One Impairment right shoulder pain Impairment as high as 9/10 Short Term Goal (STG) Decrease pain to no greater than 5/10 with all usual activities STG Duration 03/26/24 Senior Living Goal (LTG) Decrease pain to no greater than 2/10 with all usual activities LTG Duration 05/07/24 Assessment Summary Assessment Pt report Ktaping helping, not need to reapply still effective support, discussed can off prior to next tx easy removal. Pt improved decreased guarding post manual STMs and PROM with ed cues for use breath, responded well to progression ROM and strength UE away from body supine FF and serratus press using dowel , cued little press away and ER underhand allowed reduction /diminished clicking in L shld as range progressed. Improved scapulothoracic mobility with slow pacing ed reps for stability control. Cued for trunk wt shift between BLEs for proper pendulum standing. Pt reports felt alot better end tx and activity can work into home carryover progression. Physical Therapy Plan Frequency and Duration Frequency of Treatment 2x/Week Duration of treatment (weeks) 12 Plan of Care Start Date 02/05/24 Plan of Care End Date 05/07/24 Therapeutic Interventions Therapeutic Interventions Home Exercise Program,Joint Mobilizations,Manual Therapy, Patient/Caregiver Education, Self-Care/Home Management,Soft Tissue Mobilization,Taping, Therapeutic Activities, Therapeutic Exercises Modalities Cold Pack/Ice Massage,Electric Stimulation,Hot Packs, Infrared Therapy,Iontophoresis ,Ultrasound Next Visit Focus/Plan Next Note Type Treatment Note Next Visit Plan REcheck KT tape taken off/ reapply if needed, PRN cold laser. REcheck HEP added FF/ serratus press /c dowel and supine vs seated ER /c dowel. Manual support for mobility support. PT POC: Continue gentle ther ex, use wand for AAROM ER, flex, ext as tolerated. Future: rail walking, serratus pushups wall.
--- NOTE | 2024-03-04 09:03 | PT.OTN ---
Current Diagnoses Pain in left shoulder (03/04/24) Physical Therapy Treatment Note PT-OP-A Visit Information Start: 02/04/24 17:04 Freq: Status: Active Protocol: Document 03/04/24 08:18 SP (Rec: 03/04/24 09:07 SP [id number]) Out-Patient Physical Therapy Visit Information Visit Information Visit Type Treatment Note Visit Start Time 08:18 Visit Stop Time 09:03 Visit Number 4 Number of HUMAN FACTORS ADVISOR LEAD Visits 2 Evaluation Information Evaluation Date 02/05/24 Precautions Precautions HTN, back pain, arthritis PT-OP-B Current Condition Start: 02/04/24 17:04 Freq: Status: Active Protocol: Document 02/10/24 10:31 SAK (Rec: 02/10/24 11:45 SAK [id number]) Current Condition History of Current Condition Onset Date 2 years Current Complaints left shoulder pain History of Current Condition Was carrying a lamp down the stairs, reached forward to hand to and felt a slip in left shoulder. Progressively worse, shoulder pops and cracks, inc difficulty putting coat on, reaching behind back, and can' t reach overhead. Pain can increase to a 9/10, feels like pops forward. Denies N/T. REports shoulder clicks and grinds. Patient is right handed. Has had no treatment for shoulder. Walks for exercise, no UE ex. Prior Treatments and Tests x-ray: mod osteoarthritis Future Testing and Treatments Planned Potential MRI after PT completed PT-OP-C Subjective Start: 02/04/24 17:04 Freq: Status: Active Protocol: Document 03/04/24 08:18 SP (Rec: 03/04/24 09:07 SP [id number]) OP-PT Subjective Patient Comments Patient Comments Pt reports L shoulder worse, now popping alot more, lifting abd less range approx 50 deg popping sooner. Achy and sore all the time isabella hanging arm at side, worse after exercises and worsens rest of day so not doing as much. Patient Reported Progress Worse PT-OP-E Functional Tests Start: 02/04/24 17:04 Freq: Status: Active Protocol: Document 02/05/24 08:16 SAK (Rec: 02/06/24 17:11 SAK [id number]) Functional Tests Williamey's Scratch Test Action 1- Left ant shoulder Action 1- Right post shoulder Action 2- Left lateral neck Action 2- Right T1 Action 3- Left lateral hip Action 3- Right T11 PT-OP-F Manual Assessment Start: 02/04/24 17:04 Freq: Status: Active Protocol: Document 02/05/24 08:16 SAK (Rec: 02/06/24 17:11 SAK [id number]) Manual Assessments Joint Mobility Assessment Joint Mobility Assessment dec post and inf glide left shoulder PT-OP-H Neuro Start: 02/04/24 17:04 Freq: Status: Active Protocol: Document 02/05/24 08:16 SAK (Rec: 02/05/24 09:00 SAK [id number]) Sensation Evaluation Gross Sensation Gross Sensation WNL PT-OP-J Posture/Palpation/Skin Start: 02/04/24 17:04 Freq: Status: Active Protocol: Document 02/05/24 08:16 SAK (Rec: 02/05/24 09:00 SAK [id number]) Posture Evaluation Position Sitting Head/C-Spine Posture Forward Head T-Spine Posture Increased Kyphosis Shoulder Posture (L) Rounded,(R) Rounded,(L) Forward Scapula Posture (L) Protracted,(R) Protracted, (L) Elevated Arm Posture (L) Internally Rotated,(R) Internally Rotated PT-OP-K Range of Motion Start: 02/04/24 17:04 Freq: Status: Active Protocol: Document 02/05/24 08:16 SAK (Rec: 02/05/24 09:00 SAK [id number]) Cervical Spine Range of Motion Cervical Spine Active Testing Position Sitting ROM Limitations Soft Tissue Tightness,Bony Restriction Comments mild dec all motions Shoulder Goniometric Range of Motion Shoulder Right Shoulder ROM WFL Yes Left Testing Position Sitting Flexion 72 Extension 10 Abduction 37 Horizontal Abduction 72 Horizontal Adduction 21 External Rotation at 45 degrees 14 Abduction Internal Rotation Behind Back (text) lateral hip Elbow/Forearm Range of Motion Elbow/Forearm gerardo Elbow/Forearm ROM WFL Yes PT-OP-L Special Tests Start: 02/04/24 17:04 Freq: Status: Active Protocol: Document 02/05/24 08:16 SAK (Rec: 02/06/24 17:11 SAK [id number]) Special Tests Shoulder Special Tests Passive ER Rotator Cuff Test Results +L Drop Arm Rotator Cuff Test Results +L Belly Press Test Results +L PT-OP-M Strength Start: 02/04/24 17:04 Freq: Status: Active Protocol: Document 02/05/24 08:16 SAK (Rec: 02/06/24 17:11 SAK [id number]) Shoulder Strength Shoulder Manual Muscle Testing Left Flexion 3- Fair- Extension 3- Fair- Abduction (C5) 3- Fair- Adduction 3+ Fair+ External Rotation 3- Fair- Internal Rotation 3+ Fair+ Right Flexion 5 Normal Extension 5 Normal Abduction (C5) 5 Normal Adduction 5 Normal External Rotation 5 Normal Internal Rotation 5 Normal Elbow/Forearm Strength Elbow and Forearm Manual Muscle Testing Left Flexion (C6) 4 Good Extension (C7) 4 Good Right Flexion (C6) 5 Normal Extension (C7) 5 Normal PT-OP-Q Treatments Start: 02/04/24 17:04 Freq: Status: Active Protocol: Document 03/04/24 08:18 SP (Rec: 03/04/24 09:07 SP [id number]) Therapeutic Exercises Supine Exercises serratus press Supine Exercise Name reviewed HEP Side bilateral Equipment Used dowel Reps/Minutes x10 reps Comments cued slow pacing pnfree range pain (<70 deg FF) FF Supine Exercise Name reviewed HEP Side bilateral Resistance AAROM- L under hand worse today than palm down Reps/Minutes x10 Comments poppingearlier 50deg stops this range Standing Exercises shoulder isometrics Standing Exercise Name trialed in PT: ER, IR, Flex, Ext- added to HEP Side left Equipment Used declined HO Reps/Minutes 5 SH x5 Comments reports IR & Flex ok, ER 3/10 & Ext cause sore 2/10 shoulder flex Standing Exercise Name theraball roll- Gerardo together Equipment Used 55 cm ball on table Reps/Minutes 10x (does up to 3xday if tolerant) Comments performs more of serratus press, not FF sh IR/ER long axis Standing Exercise Name EP reviewed Side left Resistance AROM Equipment Used arms at side Reps/Minutes x10 Comments reports causes soreness if to far IR, cued scap back shoulder rolls Side bilateral Reps/Minutes x10 Comments forward ok, backward very sore shoulder shrug Reps/Minutes 8 reps before very irritating. Comments feels only go so high, if higher gets really irritating Manual Therapy Treatment Soft Tissue Mobilization RC insertion Body Location RTC distal insertion Mobilization Type Rolling Intensity/Depth light Body Position Sidelying Comments STMs, sensitive to pressure and very guarded. Joint Mobilizations L shoulder Joint L scapulothoracic R SL Direction inferior & posterior, retraction/protraction, superior/inferior glide Grade II Body Position Sidelying Comments Pt very guarded today during attempt for GH and scapulothoracic gentle AAROM, didn't tolerate well so stopped. Taping L shoulder Treatment Focus support and pain management Type of Tape KT tape Skin Inspection intact Comments 1 V strip distal deltoid split to UT 1 V strip anterior humeral head split around AC jt to post scap. PT-OP-R Modalities Start: 02/04/24 17:04 Freq: Status: Active Protocol: Document 03/04/24 08:18 SP (Rec: 03/04/24 09:07 SP [id number]) Infrared Treatment Treatment Left Proximal Shoulder Body Position Sitting Continuous/Pulsed cont Program or Protocal chronic pain and stiffness Comments 6 locations PT-OP-T Assessment and Plan Start: 02/04/24 17:04 Freq: Status: Active Protocol: Document 03/04/24 08:18 SP (Rec: 03/04/24 09:07 SP [id number]) Physical Therapy Assessment Goals Three Impairment unable to reach overhead or behind his back for purposes of ADL's Group Home Goal (LTG) Patient will be able to reach overhead and behind his back to be able to resume ADL's without pain 02/12/24 : added wand FF, serratus press, seated vs supine ER. LTG Duration 05/07/24 progressing 02/12/24 Two Impairment activity intolerance Impairment Quickdash UE disability index score 36% Short Term Goal (STG) Improve Quickdash score to no greater than 18% as measure of improved activity tolerance STG Duration 03/26/24 Group Home Goal (LTG) Improve Quidash score to no greater than 9% as measure of improved activity tolerance and quality of life LTG Duration 05/07/24 One Impairment right shoulder pain Impairment as high as 9/10 Short Term Goal (STG) Decrease pain to no greater than 5/10 with all usual activities STG Duration 03/26/24 Drupal Programmer Goal (LTG) Decrease pain to no greater than 2/10 with all usual activities LTG Duration 05/07/24 Assessment Summary Assessment Pt very guarded during gentle manual so limited assist. Initiated isometrics with pnfree response IR and flexion but increased achiness/ soreness ER and Ext, discussed benefits of muscle engagement for proximal support with understanding. Pt was very limited range of tolerance in most of exercises. Pendulum is his recovery go to performance. Ktaping has helped, reapplied today with good response felt more supportive. Pt would benefit from further imaging due to worsening symptoms with very gentle basic AAROM performing in PT. HUMAN FACTORS ADVISOR LEAD discussed pt response to tx and ex,in agreement requesting MRI for further assessment. Physical Therapy Plan Frequency and Duration Frequency of Treatment 2x/Week Duration of treatment (weeks) 12 Plan of Care Start Date 02/05/24 Plan of Care End Date 05/07/24 Therapeutic Interventions Therapeutic Interventions Home Exercise Program,Joint Mobilizations,Manual Therapy, Patient/Caregiver Education, Self-Care/Home Management,Soft Tissue Mobilization,Taping, Therapeutic Activities, Therapeutic Exercises Modalities Cold Pack/Ice Massage,Electric Stimulation,Hot Packs, Infrared Therapy,Iontophoresis ,Ultrasound Other Referrals/Consults Referrals/Consults Recommended Recommending further imaging of L shld. Next Visit Focus/Plan Next Note Type Treatment Note Next Visit Plan REcheck KT tape taken off/ reapply if needed, PRN cold laser. REcheck HEP added FF/ serratus press /c dowel and supine vs seated ER /c dowel, isometrics. Manual support for mobility support. PT POC: Continue gentle ther ex, use wand for AAROM ER, flex, ext as tolerated. Future: rail walking, serratus pushups wall.
--- NOTE | 2024-03-04 16:39 | PT.OPPN ---
Current Diagnoses Pain in left shoulder (03/04/24) Physical Therapy Progress Note PT-OP-A Visit Information Start: 02/04/24 17:04 Freq: Status: Active Protocol: Document 03/04/24 16:38 SAK (Rec: 03/04/24 16:38 [facility] [id number]) Out-Patient Physical Therapy Visit Information Visit Information Visit Type Progress Note Evaluation Information Evaluation Date 02/05/24 Precautions Precautions HTN, back pain, arthritis PT-OP-B Current Condition Start: 02/04/24 17:04 Freq: Status: Active Protocol: Document 02/10/24 10:31 SAK (Rec: 02/10/24 11:45 SAK [id number]) Current Condition History of Current Condition Onset Date 2 years Current Complaints left shoulder pain History of Current Condition Was carrying a lamp down the stairs, reached forward to hand to and felt a slip in left shoulder. Progressively worse, shoulder pops and cracks, inc difficulty putting coat on, reaching behind back, and can' t reach overhead. Pain can increase to a 9/10, feels like pops forward. Denies N/T. REports shoulder clicks and grinds. Patient is right handed. Has had no treatment for shoulder. Walks for exercise, no UE ex. Prior Treatments and Tests x-ray: mod osteoarthritis Future Testing and Treatments Planned Potential MRI after PT completed PT-OP-C Subjective Start: 02/04/24 17:04 Freq: Status: Active Protocol: Document 03/04/24 16:38 SAK (Rec: 03/04/24 16:38 [facility] [id number]) OP-PT Subjective Patient Comments Patient Comments Pt reports L shoulder worse, now popping alot more, lifting abd less range approx 50 deg popping sooner. Achy and sore all the time isabella hanging arm at side, worse after exercises and worsens rest of day so not doing as much. Patient Reported Progress Worse PT-OP-E Functional Tests Start: 02/04/24 17:04 Freq: Status: Active Protocol: Document 02/05/24 08:16 SAK (Rec: 02/06/24 17:11 SAK [id number]) Functional Tests Williamey's Scratch Test Action 1: The subject is instructed to touch the opposite shoulder with his/her hand. This motion checks Glenohumeral adduction, internal rotation , horizontal adduction and scapular protraction Action 2: The subject is instructed to place his/her arm overhead and reach behind the neck to touch his/her upper back. This motion checks Glenohumeral abduction, external rotation and scapular upward rotation and elevation. Action 3: The subject puts his/her hand on the lower back and reaches upward as far as possible. This motion checks glenohumeral adduction, internal rotation and scapular retraction with downward rotation Action 1- Left ant shoulder Action 1- Right post shoulder Action 2- Left lateral neck Action 2- Right T1 Action 3- Left lateral hip Action 3- Right T11 PT-OP-F Manual Assessment Start: 02/04/24 17:04 Freq: Status: Active Protocol: Document 02/05/24 08:16 SAK (Rec: 02/06/24 17:11 [facility] [id number]) Manual Assessments Joint Mobility Assessment Joint Mobility Assessment dec post and inf glide left shoulder PT-OP-H Neuro Start: 02/04/24 17:04 Freq: Status: Active Protocol: Document 02/05/24 08:16 SAK (Rec: 02/05/24 09:00 [facility] [id number]) Sensation Evaluation Gross Sensation Gross Sensation WNL PT-OP-J Posture/Palpation/Skin Start: 02/04/24 17:04 Freq: Status: Active Protocol: Document 02/05/24 08:16 SAK (Rec: 02/05/24 09:00 [facility] [id number]) Posture Evaluation Position Sitting Head/C-Spine Posture Forward Head T-Spine Posture Increased Kyphosis Shoulder Posture (L) Rounded,(R) Rounded,(L) Forward Scapula Posture (L) Protracted,(R) Protracted, (L) Elevated Arm Posture (L) Internally Rotated,(R) Internally Rotated PT-OP-K Range of Motion Start: 02/04/24 17:04 Freq: Status: Active Protocol: Document 02/05/24 08:16 SAK (Rec: 02/05/24 09:00 [facility] [id number]) Cervical Spine Range of Motion Cervical Spine Active Testing Position Sitting ROM Limitations Soft Tissue Tightness,Bony Restriction Comments mild dec all motions Shoulder Goniometric Range of Motion Shoulder Measured in Degrees Right Shoulder ROM WFL Yes Left Testing Position Sitting Flexion 72 Extension 10 Abduction 37 Horizontal Abduction 72 Horizontal Adduction 21 External Rotation at 45 degrees 14 Abduction Internal Rotation Behind Back (text) lateral hip Elbow/Forearm Range of Motion Elbow/Forearm Measured in Degrees yris Elbow/Forearm ROM WFL Yes PT-OP-L Special Tests Start: 02/04/24 17:04 Freq: Status: Active Protocol: Document 02/05/24 08:16 SAK (Rec: 02/06/24 17:11 SAK [id number]) Special Tests Shoulder Special Tests Passive ER Rotator Cuff Test Results +L Drop Arm Rotator Cuff Test Results +L Belly Press Test Results +L PT-OP-M Strength Start: 02/04/24 17:04 Freq: Status: Active Protocol: Document 02/05/24 08:16 SAK (Rec: 02/06/24 17:11 SAK [id number]) Shoulder Strength Shoulder Manual Muscle Testing Left Flexion 3- Fair- Extension 3- Fair- Abduction (C5) 3- Fair- Adduction 3+ Fair+ External Rotation 3- Fair- Internal Rotation 3+ Fair+ Right Flexion 5 Normal Extension 5 Normal Abduction (C5) 5 Normal Adduction 5 Normal External Rotation 5 Normal Internal Rotation 5 Normal Elbow/Forearm Strength Elbow and Forearm Manual Muscle Testing Left Flexion (C6) 4 Good Extension (C7) 4 Good Right Flexion (C6) 5 Normal Extension (C7) 5 Normal PT-OP-T Assessment and Plan Start: 02/04/24 17:04 Freq: Status: Active Protocol: Document 03/04/24 16:38 [facility] (Rec: 03/04/24 16:38 [facility] [id number]) Physical Therapy Assessment Goals Three Impairment unable to reach overhead or behind his back for purposes of ADL's Lock And Dam Operator Goal (LTG) Patient will be able to reach overhead and behind his back to be able to resume ADL's without pain 02/12/24 : added wand FF, serratus press, seated vs supine ER. LTG Duration 05/07/24 progressing 02/12/24 Two Impairment activity intolerance Impairment Quickdash UE disability index score 36% Short Term Goal (STG) Improve Quickdash score to no greater than 18% as measure of improved activity tolerance STG Duration 03/26/24 Lock And Dam Operator Goal (LTG) Improve Quidash score to no greater than 9% as measure of improved activity tolerance and quality of life LTG Duration 05/07/24 One Impairment right shoulder pain Impairment as high as 9/10 Short Term Goal (STG) Decrease pain to no greater than 5/10 with all usual activities STG Duration 03/26/24 Jail Goal (LTG) Decrease pain to no greater than 2/10 with all usual activities LTG Duration 05/07/24 Assessment Summary Assessment Pt very guarded during gentle manual so limited assist. Initiated isometrics with pnfree response IR and flexion but increased achiness/ soreness ER and Ext, discussed benefits of muscle engagement for proximal support with understanding. Pt was very limited range of tolerance in most of exercises. Pendulum is his recovery go to performance. Ktaping has helped, reapplied today with good response felt more supportive. Pt would benefit from further imaging due to worsening symptoms with very gentle basic AAROM performing in PT. Physical Therapy Plan Frequency and Duration Frequency of Treatment 2x/Week Duration of treatment (weeks) 12 Plan of Care Start Date 02/05/24 Plan of Care End Date 05/07/24 Therapeutic Interventions Therapeutic Interventions Home Exercise Program,Joint Mobilizations,Manual Therapy, Patient/Caregiver Education, Self-Care/Home Management,Soft Tissue Mobilization,Taping, Therapeutic Activities, Therapeutic Exercises Modalities Cold Pack/Ice Massage,Electric Stimulation,Hot Packs, Infrared Therapy,Iontophoresis ,Ultrasound Other Referrals/Consults Referrals/Consults Recommended Recommending further imaging of L shld. Next Visit Focus/Plan Next Note Type Treatment Note Next Visit Plan REcheck KT tape taken off/ reapply if needed, PRN cold laser. REcheck HEP added FF/ serratus press /c dowel and supine vs seated ER /c dowel, isometrics. Manual support for mobility support. PT POC: Continue gentle ther ex, use wand for AAROM ER, flex, ext as tolerated. Future: rail walking, serratus pushups wall.
--- NOTE | 2024-03-04 16:42 | PT.OPPN ---
Current Diagnoses Pain in left shoulder (03/04/24) Physical Therapy Progress Note PT-OP-A Visit Information Start: 02/04/24 17:04 Freq: Status: Active Protocol: Document 03/04/24 16:38 SAK (Rec: 03/04/24 16:38 [facility] [id number]) Out-Patient Physical Therapy Visit Information Visit Information Visit Type Progress Note Evaluation Information Evaluation Date 02/05/24 Precautions Precautions HTN, back pain, arthritis PT-OP-B Current Condition Start: 02/04/24 17:04 Freq: Status: Active Protocol: Document 02/10/24 10:31 SAK (Rec: 02/10/24 11:45 SAK [id number]) Current Condition History of Current Condition Onset Date 2 years Current Complaints left shoulder pain History of Current Condition Was carrying a lamp down the stairs, reached forward to hand to and felt a slip in left shoulder. Progressively worse, shoulder pops and cracks, inc difficulty putting coat on, reaching behind back, and can' t reach overhead. Pain can increase to a 9/10, feels like pops forward. Denies N/T. REports shoulder clicks and grinds. Patient is right handed. Has had no treatment for shoulder. Walks for exercise, no UE ex. Prior Treatments and Tests x-ray: mod osteoarthritis Future Testing and Treatments Planned Potential MRI after PT completed PT-OP-C Subjective Start: 02/04/24 17:04 Freq: Status: Active Protocol: Document 03/04/24 16:38 SAK (Rec: 03/04/24 16:38 [facility] [id number]) OP-PT Subjective Patient Comments Patient Comments Pt reports L shoulder worse, now popping alot more, lifting abd less range approx 50 deg popping sooner. Achy and sore all the time isabella hanging arm at side, worse after exercises and worsens rest of day so not doing as much. Patient Reported Progress Worse PT-OP-E Functional Tests Start: 02/04/24 17:04 Freq: Status: Active Protocol: Document 02/05/24 08:16 SAK (Rec: 02/06/24 17:11 SAK [id number]) Functional Tests Williamey's Scratch Test Action 1: The subject is instructed to touch the opposite shoulder with his/her hand. This motion checks Glenohumeral adduction, internal rotation , horizontal adduction and scapular protraction Action 2: The subject is instructed to place his/her arm overhead and reach behind the neck to touch his/her upper back. This motion checks Glenohumeral abduction, external rotation and scapular upward rotation and elevation. Action 3: The subject puts his/her hand on the lower back and reaches upward as far as possible. This motion checks glenohumeral adduction, internal rotation and scapular retraction with downward rotation Action 1- Left ant shoulder Action 1- Right post shoulder Action 2- Left lateral neck Action 2- Right T1 Action 3- Left lateral hip Action 3- Right T11 PT-OP-F Manual Assessment Start: 02/04/24 17:04 Freq: Status: Active Protocol: Document 02/05/24 08:16 SAK (Rec: 02/06/24 17:11 [facility] [id number]) Manual Assessments Joint Mobility Assessment Joint Mobility Assessment dec post and inf glide left shoulder PT-OP-H Neuro Start: 02/04/24 17:04 Freq: Status: Active Protocol: Document 02/05/24 08:16 SAK (Rec: 02/05/24 09:00 [facility] [id number]) Sensation Evaluation Gross Sensation Gross Sensation WNL PT-OP-J Posture/Palpation/Skin Start: 02/04/24 17:04 Freq: Status: Active Protocol: Document 02/05/24 08:16 SAK (Rec: 02/05/24 09:00 [facility] [id number]) Posture Evaluation Position Sitting Head/C-Spine Posture Forward Head T-Spine Posture Increased Kyphosis Shoulder Posture (L) Rounded,(R) Rounded,(L) Forward Scapula Posture (L) Protracted,(R) Protracted, (L) Elevated Arm Posture (L) Internally Rotated,(R) Internally Rotated PT-OP-K Range of Motion Start: 02/04/24 17:04 Freq: Status: Active Protocol: Document 02/05/24 08:16 SAK (Rec: 02/05/24 09:00 [facility] [id number]) Cervical Spine Range of Motion Cervical Spine Active Testing Position Sitting ROM Limitations Soft Tissue Tightness,Bony Restriction Comments mild dec all motions Shoulder Goniometric Range of Motion Shoulder Measured in Degrees Right Shoulder ROM WFL Yes Left Testing Position Sitting Flexion 72 Extension 10 Abduction 37 Horizontal Abduction 72 Horizontal Adduction 21 External Rotation at 45 degrees 14 Abduction Internal Rotation Behind Back (text) lateral hip Elbow/Forearm Range of Motion Elbow/Forearm Measured in Degrees yris Elbow/Forearm ROM WFL Yes PT-OP-L Special Tests Start: 02/04/24 17:04 Freq: Status: Active Protocol: Document 02/05/24 08:16 SAK (Rec: 02/06/24 17:11 SAK [id number]) Special Tests Shoulder Special Tests Passive ER Rotator Cuff Test Results +L Drop Arm Rotator Cuff Test Results +L Belly Press Test Results +L PT-OP-M Strength Start: 02/04/24 17:04 Freq: Status: Active Protocol: Document 02/05/24 08:16 SAK (Rec: 02/06/24 17:11 SAK [id number]) Shoulder Strength Shoulder Manual Muscle Testing Left Flexion 3- Fair- Extension 3- Fair- Abduction (C5) 3- Fair- Adduction 3+ Fair+ External Rotation 3- Fair- Internal Rotation 3+ Fair+ Right Flexion 5 Normal Extension 5 Normal Abduction (C5) 5 Normal Adduction 5 Normal External Rotation 5 Normal Internal Rotation 5 Normal Elbow/Forearm Strength Elbow and Forearm Manual Muscle Testing Left Flexion (C6) 4 Good Extension (C7) 4 Good Right Flexion (C6) 5 Normal Extension (C7) 5 Normal PT-OP-T Assessment and Plan Start: 02/04/24 17:04 Freq: Status: Active Protocol: Document 03/04/24 16:38 [facility] (Rec: 03/04/24 16:38 [facility] [id number]) Physical Therapy Assessment Goals Three Impairment unable to reach overhead or behind his back for purposes of ADL's Demurrage Worker Goal (LTG) Patient will be able to reach overhead and behind his back to be able to resume ADL's without pain 02/12/24 : added wand FF, serratus press, seated vs supine ER. LTG Duration 05/07/24 progressing 02/12/24 Two Impairment activity intolerance Impairment Quickdash UE disability index score 36% Short Term Goal (STG) Improve Quickdash score to no greater than 18% as measure of improved activity tolerance STG Duration 03/26/24 Demurrage Worker Goal (LTG) Improve Quidash score to no greater than 9% as measure of improved activity tolerance and quality of life LTG Duration 05/07/24 One Impairment right shoulder pain Impairment as high as 9/10 Short Term Goal (STG) Decrease pain to no greater than 5/10 with all usual activities STG Duration 03/26/24 [facility] Goal (LTG) Decrease pain to no greater than 2/10 with all usual activities LTG Duration 05/07/24 Assessment Summary Assessment Pt very guarded during gentle manual so limited assist. Initiated isometrics with pnfree response IR and flexion but increased achiness/ soreness ER and Ext, discussed benefits of muscle engagement for proximal support with understanding. Pt was very limited range of tolerance in most of exercises. Pendulum is his recovery go to performance. Ktaping has helped, reapplied today with good response felt more supportive. Pt would benefit from further imaging due to worsening symptoms with very gentle basic AAROM performing in PT. Physical Therapy Plan Frequency and Duration Frequency of Treatment 2x/Week Duration of treatment (weeks) 12 Plan of Care Start Date 02/05/24 Plan of Care End Date 05/07/24 Therapeutic Interventions Therapeutic Interventions Home Exercise Program,Joint Mobilizations,Manual Therapy, Patient/Caregiver Education, Self-Care/Home Management,Soft Tissue Mobilization,Taping, Therapeutic Activities, Therapeutic Exercises Modalities Cold Pack/Ice Massage,Electric Stimulation,Hot Packs, Infrared Therapy,Iontophoresis ,Ultrasound Other Referrals/Consults Referrals/Consults Recommended Recommending further imaging of L shld. Next Visit Focus/Plan Next Note Type Treatment Note Next Visit Plan REcheck KT tape taken off/ reapply if needed, PRN cold laser. REcheck HEP added FF/ serratus press /c dowel and supine vs seated ER /c dowel, isometrics. Manual support for mobility support. PT POC: Continue gentle ther ex, use wand for AAROM ER, flex, ext as tolerated. Future: rail walking, serratus pushups wall.
--- NOTE | 2024-03-10 14:28 | PT.OTN ---
Current Diagnoses Pain in left shoulder (03/10/24) Physical Therapy Treatment Note PT-OP-A Visit Information Start: 02/04/24 17:04 Freq: Status: Active Protocol: Document 03/10/24 10:46 SAK (Rec: 03/10/24 11:16 [facility] [id number]) Out-Patient Physical Therapy Visit Information Visit Information Visit Type Treatment Note Visit Start Time 10:30 Visit Stop Time 11:25 Visit Number 5 Evaluation Information Evaluation Date 02/05/24 Precautions Precautions HTN, back pain, arthritis PT-OP-B Current Condition Start: 02/04/24 17:04 Freq: Status: Active Protocol: Document 02/10/24 10:31 SAK (Rec: 02/10/24 11:45 [facility] [id number]) Current Condition History of Current Condition Onset Date 2 years Current Complaints left shoulder pain History of Current Condition Was carrying a lamp down the stairs, reached forward to hand to and felt a slip in left shoulder. Progressively worse, shoulder pops and cracks, inc difficulty putting coat on, reaching behind back, and can' t reach overhead. Pain can increase to a 9/10, feels like pops forward. Denies N/T. REports shoulder clicks and grinds. Patient is right handed. Has had no treatment for shoulder. Walks for exercise, no UE ex. Prior Treatments and Tests x-ray: mod osteoarthritis Future Testing and Treatments Planned Potential MRI after PT completed PT-OP-C Subjective Start: 02/04/24 17:04 Freq: Status: Active Protocol: Document 03/10/24 10:46 SAK (Rec: 03/10/24 11:16 [facility] [id number]) OP-PT Subjective Patient Comments Patient Comments Patient reports left shoulder not doing well, increased pain and decreased ROM. Patient Reported Progress Worse PT-OP-E Functional Tests Start: 02/04/24 17:04 Freq: Status: Active Protocol: Document 02/05/24 08:16 SAK (Rec: 02/06/24 17:11 [facility] [id number]) Functional Tests Williamey's Scratch Test Action 1- Left ant shoulder Action 1- Right post shoulder Action 2- Left lateral neck Action 2- Right T1 Action 3- Left lateral hip Action 3- Right T11 PT-OP-F Manual Assessment Start: 02/04/24 17:04 Freq: Status: Active Protocol: Document 02/05/24 08:16 SAK (Rec: 02/06/24 17:11 SAK [id number]) Manual Assessments Joint Mobility Assessment Joint Mobility Assessment dec post and inf glide left shoulder PT-OP-H Neuro Start: 02/04/24 17:04 Freq: Status: Active Protocol: Document 02/05/24 08:16 SAK (Rec: 02/05/24 09:00 SAK [id number]) Sensation Evaluation Gross Sensation Gross Sensation WNL PT-OP-J Posture/Palpation/Skin Start: 02/04/24 17:04 Freq: Status: Active Protocol: Document 02/05/24 08:16 SAK (Rec: 02/05/24 09:00 SAK [id number]) Posture Evaluation Position Sitting Head/C-Spine Posture Forward Head T-Spine Posture Increased Kyphosis Shoulder Posture (L) Rounded,(R) Rounded,(L) Forward Scapula Posture (L) Protracted,(R) Protracted, (L) Elevated Arm Posture (L) Internally Rotated,(R) Internally Rotated PT-OP-K Range of Motion Start: 02/04/24 17:04 Freq: Status: Active Protocol: Document 02/05/24 08:16 SAK (Rec: 02/05/24 09:00 SAK [id number]) Cervical Spine Range of Motion Cervical Spine Active Testing Position Sitting ROM Limitations Soft Tissue Tightness,Bony Restriction Comments mild dec all motions Shoulder Goniometric Range of Motion Shoulder Right Shoulder ROM WFL Yes Left Testing Position Sitting Flexion 72 Extension 10 Abduction 37 Horizontal Abduction 72 Horizontal Adduction 21 External Rotation at 45 degrees 14 Abduction Internal Rotation Behind Back (text) lateral hip Elbow/Forearm Range of Motion Elbow/Forearm yris Elbow/Forearm ROM WFL Yes PT-OP-L Special Tests Start: 02/04/24 17:04 Freq: Status: Active Protocol: Document 02/05/24 08:16 SAK (Rec: 02/06/24 17:11 SAK [id number]) Special Tests Shoulder Special Tests Passive ER Rotator Cuff Test Results +L Drop Arm Rotator Cuff Test Results +L Belly Press Test Results +L PT-OP-M Strength Start: 02/04/24 17:04 Freq: Status: Active Protocol: Document 02/05/24 08:16 SAK (Rec: 02/06/24 17:11 SAK [id number]) Shoulder Strength Shoulder Manual Muscle Testing Left Flexion 3- Fair- Extension 3- Fair- Abduction (C5) 3- Fair- Adduction 3+ Fair+ External Rotation 3- Fair- Internal Rotation 3+ Fair+ Right Flexion 5 Normal Extension 5 Normal Abduction (C5) 5 Normal Adduction 5 Normal External Rotation 5 Normal Internal Rotation 5 Normal Elbow/Forearm Strength Elbow and Forearm Manual Muscle Testing Left Flexion (C6) 4 Good Extension (C7) 4 Good Right Flexion (C6) 5 Normal Extension (C7) 5 Normal PT-OP-Q Treatments Start: 02/04/24 17:04 Freq: Status: Active Protocol: Document 03/11/24 10:46 RONALD (Rec: 03/11/24 14:27 SAK [id number]) Therapeutic Exercises Supine Exercises FF Supine Exercise Name reviewed HEP Side bilateral Resistance AAROM- L under hand worse today than palm down Reps/Minutes x10 Comments poppingearlier 50deg stops this range shld ab Supine Exercise Name PROM Side left Reps/Minutes 10 Comments pain-free ROM Shld ER Supine Exercise Name PROM Side left Equipment Used towel roll under distal elbow Reps/Minutes 10x2 Comments pain-free ROM, max 20 deg Manual Therapy Treatment Consent Patient gave verbal consent for manual Yes treatment Soft Tissue Mobilization periscap Mobilization Type Myofascial Release,Strumming Intensity/Depth Moderate Body Position Supine RC insertion Body Location RTC distal insertion Mobilization Type Rolling Intensity/Depth light Body Position Sidelying Comments STMs, sensitive to pressure and very guarded. Joint Mobilizations L shoulder Joint L scapulothoracic R SL Direction inferior & posterior, retraction/protraction, superior/inferior glide Grade II Body Position Sidelying Taping L shoulder Comments pt didn't feel helpful PT-OP-R Modalities Start: 02/04/24 17:04 Freq: Status: Active Protocol: Document 03/10/24 10:46 RONALD (Rec: 03/11/24 14:28 [facility] [id number]) Hot Pack/Cold Pack Treatment Cold Pack Location left shoulder Patient Position Sitting Patient Tolerance Good PT-OP-T Assessment and Plan Start: 02/04/24 17:04 Freq: Status: Active Protocol: Document 03/10/24 10:46 RONALD (Rec: 03/10/24 11:16 SAK [id number]) Physical Therapy Assessment Goals Three Impairment unable to reach overhead or behind his back for purposes of ADL's Tensioning Machine Operator Goal (LTG) Patient will be able to reach overhead and behind his back to be able to resume ADL's without pain 02/12/24 : added wand FF, serratus press, seated vs supine ER. LTG Duration 05/07/24 progressing 02/12/24 Two Impairment activity intolerance Impairment Quickdash UE disability index score 36% Short Term Goal (STG) Improve Quickdash score to no greater than 18% as measure of improved activity tolerance STG Duration 03/26/24 [facility] Goal (LTG) Improve Quidash score to no greater than 9% as measure of improved activity tolerance and quality of life LTG Duration 05/07/24 One Impairment right shoulder pain Impairment as high as 9/10 Short Term Goal (STG) Decrease pain to no greater than 5/10 with all usual activities STG Duration 03/26/24 Tensioning Machine Operator Goal (LTG) Decrease pain to no greater than 2/10 with all usual activities LTG Duration 05/07/24 Assessment Summary Assessment PT not helping patient at this time, recommend hold PT and do further shoulder imaging ( MRI) as recommended to Dr. Ojeda via PN last week. Patient to call Dr. Ojeda. Physical Therapy Plan Hold Physical Therapy Reason For Hold Pain increased with PT. Next Visit Focus/Plan Next Note Type Treatment Note Next Visit Plan PT on hold until patient consults with Dr. Ojeda, possible MRI.
--- NOTE | 2024-07-20 13:33 | PT.OPDS ---
Current Diagnoses Pain in left shoulder (03/10/24) Visit Care Team Role Provider Type Esdras Ojeda MD Attending Provider Physician Family Provider Primary Care Provider Referring Provider Specialty: Internal Medicine Address: [address] [place] [address], [address], [place], [address] Email: [email or web address] Visit Number Visit Number 5 Discharge Summary PT-OP-B Current Condition Start: 02/04/24 17:04 Freq: Status: Active Protocol: Document 02/10/24 10:31 SAK (Rec: 02/10/24 11:45 SAK [id number]) Current Condition History of Current Condition Onset Date 2 years Current Complaints left shoulder pain History of Current Condition Was carrying a lamp down the stairs, reached forward to hand to and felt a slip in left shoulder. Progressively worse, shoulder pops and cracks, inc difficulty putting coat on, reaching behind back, and can' t reach overhead. Pain can increase to a 9/10, feels like pops forward. Denies N/T. REports shoulder clicks and grinds. Patient is right handed. Has had no treatment for shoulder. Walks for exercise, no UE ex. Prior Treatments and Tests x-ray: mod osteoarthritis Future Testing and Treatments Planned Potential MRI after PT completed PT-OP-C Subjective Start: 02/04/24 17:04 Freq: Status: Active Protocol: Document 03/10/24 10:46 SAK (Rec: 03/10/24 11:16 SAK [id number]) OP-PT Subjective Patient Comments Patient Comments Patient reports left shoulder not doing well, increased pain and decreased ROM. Patient Reported Progress Worse PT-OP-E Functional Tests Start: 02/04/24 17:04 Freq: Status: Active Protocol: Document 02/05/24 08:16 SAK (Rec: 02/06/24 17:11 [facility] [id number]) Functional Tests Apley's Scratch Test Action 1- Left ant shoulder Action 1- Right post shoulder Action 2- Left lateral neck Action 2- Right T1 Action 3- Left lateral hip Action 3- Right T11 PT-OP-F Manual Assessment Start: 02/04/24 17:04 Freq: Status: Active Protocol: Document 02/05/24 08:16 SAK (Rec: 02/06/24 17:11 SAK [id number]) Manual Assessments Joint Mobility Assessment Joint Mobility Assessment dec post and inf glide left shoulder PT-OP-H Neuro Start: 02/04/24 17:04 Freq: Status: Active Protocol: Document 02/05/24 08:16 SAK (Rec: 02/05/24 09:00 SAK [id number]) Sensation Evaluation Gross Sensation Gross Sensation WNL PT-OP-J Posture/Palpation/Skin Start: 02/04/24 17:04 Freq: Status: Active Protocol: Document 02/05/24 08:16 SAK (Rec: 02/05/24 09:00 SAK [id number]) Posture Evaluation Position Sitting Head/C-Spine Posture Forward Head T-Spine Posture Increased Kyphosis Shoulder Posture (L) Rounded,(R) Rounded,(L) Forward Scapula Posture (L) Protracted,(R) Protracted, (L) Elevated Arm Posture (L) Internally Rotated,(R) Internally Rotated PT-OP-K Range of Motion Start: 02/04/24 17:04 Freq: Status: Active Protocol: Document 02/05/24 08:16 SAK (Rec: 02/05/24 09:00 SAK [id number]) Cervical Spine Range of Motion Cervical Spine Active Testing Position Sitting ROM Limitations Soft Tissue Tightness,Bony Restriction Comments mild dec all motions Shoulder Goniometric Range of Motion Shoulder Right Shoulder ROM WFL Yes Left Testing Position Sitting Flexion 72 Extension 10 Abduction 37 Horizontal Abduction 72 Horizontal Adduction 21 External Rotation at 45 degrees 14 Abduction Internal Rotation Behind Back (text) lateral hip Elbow/Forearm Range of Motion Elbow/Forearm yris Elbow/Forearm ROM WFL Yes PT-OP-L Special Tests Start: 02/04/24 17:04 Freq: Status: Active Protocol: Document 02/05/24 08:16 SAK (Rec: 02/06/24 17:11 SAK [id number]) Special Tests Shoulder Special Tests Passive ER Rotator Cuff Test Results +L Drop Arm Rotator Cuff Test Results +L Belly Press Test Results +L PT-OP-M Strength Start: 02/04/24 17:04 Freq: Status: Active Protocol: Document 02/05/24 08:16 SAK (Rec: 02/06/24 17:11 SAK [id number]) Shoulder Strength Shoulder Manual Muscle Testing Left Flexion 3- Fair- Extension 3- Fair- Abduction (C5) 3- Fair- Adduction 3+ Fair+ External Rotation 3- Fair- Internal Rotation 3+ Fair+ Right Flexion 5 Normal Extension 5 Normal Abduction (C5) 5 Normal Adduction 5 Normal External Rotation 5 Normal Internal Rotation 5 Normal Elbow/Forearm Strength Elbow and Forearm Manual Muscle Testing Left Flexion (C6) 4 Good Extension (C7) 4 Good Right Flexion (C6) 5 Normal Extension (C7) 5 Normal PT-OP-T Assessment and Plan Start: 02/04/24 17:04 Freq: Status: Active Protocol: Document 07/20/24 13:32 [facility] (Rec: 07/20/24 13:33 [facility] [id number]) Physical Therapy Plan Discharge Physical Therapy Discharge Comments did not tolerate PT
== END 2024-07-27 13:55 | disposition home or self-care (01) ==
LOC: PHYS 10:30
PROVIDERS: Family Provider Internal Medicine; PCP Internal Medicine; Referring Provider Internal Medicine; Visit Provider Internal Medicine
DX: M25.512 Pain in left shoulder (principal)
CPT/HCPCS: 97026; 97110; 97140; 97162; 97535

== ENCOUNTER → 2024-04-06 19:50 | Outpatient (CLI) | payer OTHER, SELFPAY ==
--- NOTE | 2024-04-06 19:51 | DI.MRI.S_ITS ---
PROCEDURE: MR SHOULDER LT WO CON INDICATIONS: evaluate left shoulder pain, failed Physical Therapy TECHNIQUE: Noncontrast oblique coronal T2 fast spin echo with fat saturation, oblique sagittal T1 spin echo and T2 fast spin echo with fat saturation, axial T1 spin echo and T2 fast spin echo with fat saturation through the shoulder. COMPARISON: [facility], CR, XR SHOULDER LT MIN 2V, 07/09/2023, 15:44. FINDINGS: Image quality: Excellent. Rotator cuff: In the supraspinatus, there is low-grade interstitial tear at the anterior footprint. Additional mild tendinosis of the supraspinatus and infraspinatus. The teres minor is unremarkable. The subscapularis is unremarkable. No muscle edema or fatty atrophy. Bones and bursae: No significant degenerative changes of the acromioclavicular joint. Type 1 acromion. No os acromiale. No significant subacromial/subdeltoid bursitis. Severe degenerative changes of the glenohumeral joint with complete chondral denudation of the humeral head, and the glenoid. There is large osteophytosis of the humeral head and remodeling of the glenoid. There is mild subchondral cystic changes and marrow edema of the glenoid. No acute fracture. Capsule and soft tissues: Diffuse labral degeneration tear. No paralabral cyst. Moderate tenosynovitis of the extra-articular biceps tendon, which is intact. There is a 7 mm loose body within the bicipital tendon sheath. The intra-articular biceps tendon is unremarkable. Moderate glenohumeral effusion with synovitis. Mild subcoracoid bursitis. IMPRESSION: 1. No significant degenerative changes of the acromioclavicular joint. 2. Severe degenerative changes of the glenohumeral joint. 3. Low-grade tear of the supraspinatus. 4. Moderate tenosynovitis of the extra-articular biceps tendon with 7 mm loose body. 5. Moderate glenohumeral effusion with synovitis. Dictated by: Ginger Calloway M.D. on 04/07/2024 at 12:56 Approved by: Ginger Calloway M.D. on 04/07/2024 at 13:02
== END ==
LOC: MRI 19:51
PROVIDERS: Family Provider Internal Medicine; PCP Internal Medicine; Referring Provider Internal Medicine; Visit Provider Internal Medicine
DX: M75.112 Incomplete rotator cuff tear or rupture of left shoulder, not specified as traumatic (principal); M65.822 Other synovitis and tenosynovitis, left upper arm; M65.812 Other synovitis and tenosynovitis, left shoulder; M25.412 Effusion, left shoulder; M25.512 Pain in left shoulder
CPT/HCPCS: 73221